=== PATIENT | female | born 1930 | race Caucasian/White ===

== ENCOUNTER 2018-04-01 14:11 | Inpatient (IN) | payer OTHER ==
[~2018-04-01] VITALS: Ht 152.4 cm; Wt 77.1 kg
--- NOTE | 2018-04-01 14:18 | ED AMS/SEIZURE/WEAK/DIZZY ---
History of Present Illness General Chief Complaint: Altered Mental Status Stated Complaint: AMS Source: patient, old records, EMS Exam Limitations: not alert/orientated, clinical condition Vital Signs & Intake/Output Vital Signs & Intake/Output Vital Signs Date Time Temp Pulse Resp B/P B/P Pulse O2 O2 Flow FiO2 Mean Ox Delivery Rate 04/01 1852 98.3 102 18 130/66 94 Room Air 04/01 1810 97.6 102 18 161/72 98 Room Air 04/01 1651 97.6 107 20 178/80 93 Room Air 04/01 1509 97 Nasal 2.0L Cannula 04/01 1420 96.9 107 18 191/87 97 Allergies Coded Allergies: codeine (GI DISTRESS 04/01/18) nystatin (UNKNOWN 04/01/18) Triage Nurses Notes Reviewed? yes Onset: Abrupt Duration: day(s): (1), constant Timing: recent history Injury Environment: home Severity: moderate Severity Numbers: 7 No Modifying Factors: none Associated Symptoms: denies HPI: 87-year-old female with no known medical history presents with EMS after she was found unresponsive by her son on the ground just prior to arrival on EMS arrival patient was awake. Unknown period of time that she was on the ground on arrival she presents in a c-collar with no complaints the patient is only alert and oriented to person. She denies headache neck back or arm chest or abdominal pain. On arrival patient is vomiting. 04/01/2018 5:46:28 PM the house staff was able to get in touch with the patient's son according to the son he found the patient after she had fallen yesterday. He helped her back and side and again found her after she had fallen in the kitchen today. According to the house staff the patient's son states that she is more confused than normal. (Tonny Paniagua) Past History Medical History Any Pertinent Medical History? see below for history Cardiovascular: hyperlipidemia Surgical History Surgical History: non-contributory Psychosocial History What is your primary language Congolese Family History Hx Contributory? No (Tonny Paniagua) Review of Systems Review of Systems Constitutional: Reports: see HPI. Comments ROS: UNOBTAINABLE AT THIS TIME SECONDARY TO CONDITION (Tonny Paniagua) Physical Exam Physical Exam General Appearance: well developed/nourished, awake Comments: Unkempt female in no acute distress HEENT: Normal EENT exam; PERRL, EOMI, no nystagmus. HEAD is atraumatic. moist mucous membranes. Neck: C-collar in place no midline or paracervical tenderness Back: Nontender, no CVA tenderness. Full range of motion Cardiovascular: Regular rate and rhythms no murmurs rubs or gallops, normal JVP Respiratory: Chest nontender.There were no bony deformities, no asymmetry. No respiratory distress. Patient speaking in full complete sentences. Breath sounds clear to auscultation bilaterally: NO W/R/R Abdomen: Soft, nontender nondistended, no appreciable organomegaly. Normal bowel sounds. No rebound/guarding, Extremity: No edema, full range of motion of extremities, normal and equal pulses bilaterally, 5 out of 5 strength noted to bilateral upper and lower extremities Neuro: Alert oriented x1-person, motor sensory normal, cranial nerves II through XII grossly intact. There were no obvious focal neurologic abnormalities. Skin: No appreciable rash on exposed skin, skin is warm and dry. Psych: Mood and affect is normal, memory and judgment is normal. Core Measures ACS in differential dx? Yes CVA/TIA Diagnosis No Sepsis Present: No Sepsis Focused Exam Completed? No (Thien KOCH,Tonny) Progress Differential Diagnosis: arrythmia, anemia, CVA/stroke, drug intoxication, encephalitis, electrolyte imbalance, GI bleed, intracranial mass/tumor, pneumonia, presyncope, UTI/pyelo, vertebrobasilar insuff, RHABDO Plan of Care: Orders Procedure Date/time Status Heart Healthy Diet 04/02 B Active CBC WITHOUT DIFFERENTIAL 04/02 06 Active BASIC ELECTROLYTES PLUS BUN&CR 04/02 0600 Active TROPONIN LEVEL 04/02 0300 Active EKG 04/02 0300 Active Regular Diet 04/01 D Complete TROPONIN LEVEL 04/01 2100 Active EKG 04/01 2100 Active D-DIMER 04/01 1901 Active PT Evaluate & Treat 04/01 184 Active Pathway - chart 04/01 184 Active House Staff 04/01 1846 Active Patient Data 04/01 1846 Active CASE MANAGEMENT CONSULT 04/01 1846 Active Code Status 04/01 1846 Active Intake & Output 04/01 1811 Active LACTIC ACID 04/01 1723 Complete Patient Data 04/01 1651 Active OXYGEN SETUP (GEN) 04/01 1552 Active Saline Lock 04/01 1552 Active Admit to inpatient 04/01 1552 Active Vital Signs 04/01 1552 Active Activity/Ambulation 04/01 1552 Active Code Status 04/01 1552 Complete BLOOD CULTURE 04/01 1542 Active VIT D 25 HYDROXY 04/01 1500 Active THYROID STIMULATING HORMONE 04/01 1500 Active PHOSPHORUS 04/01 1500 Active MAGNESIUM 04/01 1500 Active Hamm, Insertion/Removal/Asses 04/01 1452 Active Telemetry/Brewing Technician 04/01 1423 Active CULTURE,URINE 04/01 1423 Active URINALYSIS 04/01 1423 Complete TROPONIN LEVEL 04/01 1423 Active LACTIC ACID 04/01 1423 Active COMPREHENSIVE METABOLIC PANEL 04/01 1423 Active CREATINE PHOSPHOKINASE 04/01 1423 Active CBC WITHOUT DIFFERENTIAL 04/01 142 Complete EKG 04/01 142 Active Lab Add-on Test 04/01 UNK Active VTE Mechanical Prophylaxis 04/01 UNK Active Vital Signs 04/01 UNK Active MISTAKE 04/01 UNK Active Telemetry/Brewing Technician 04/01 UNK Active Current Medications Sig/Dada Start time Last Medication Dose Stop Time Status Admin Polyethylene Glycol 17 GM DAILY 04/01 1847 AC (Miralax) Enoxaparin Sodium 40 MG DAILY 04/01 184 AC (Lovenox) Acetaminophen 650 MG Q6P PRN 04/01 183 AC (Tylenol) Sodium Chloride 1,000 ML .Q20H 04/01 183 AC (Normal Saline 0.9%) Laboratory Tests 04/01/18 1758: Lactic Acid 1.3 04/01/18 1510: Urinalysis MOD H, Urine Color YEL, Urine Clarity HAZY H, Urine pH 6.0, Ur Specific [place] >= 1.030, Urine Protein 100 H, Urine Ketones 15 H, Urine Nitrite NEG, Urine Bilirubin NEG, Urine Urobilinogen 0.2, Ur Leukocyte Esterase NEG, Ur Microscopic SEDIMENT EXAMINED, Urine RBC 1-3, Ur Epithelial Cells RARE, Hyaline Casts 1-3 H, Granular Casts 5-10 H, Urine Mucus MANY H, Urine Hemoglobin MOD H, Urine Glucose NEG 04/01/18 1500: Anion Gap 15, Estimated GFR 60, BUN/Creatinine Ratio 34.4 H, Glucose 173 H, Lactic Acid 2.1, Calcium 9.7, Phosphorus 3.9, Magnesium 2.2, Total Bilirubin 0.9 , AST 54 H, ALT 44, Alkaline Phosphatase 99, Creatine Kinase 873 H, Troponin I 0.06, Total Protein 8.0, Albumin 4.2, Globulin 3.8, Albumin/Globulin Ratio 1.1, 25-OH Vitamin D Total 17.0 L, TSH Pending, CBC w Diff NO MAN DIFF REQ, RBC 5.02 , MCV 83.5, MCH 28.3, MCHC 33.9, RDW 15.9 H, MPV 9.5, Gran % 91.2 H, Lymphocytes % 3.3 L, Monocytes % 4.3, Eosinophils % 0.1, Basophils % 1.1, Absolute Granulocytes 13.6 H, Absolute Lymphocytes 0.5 L, Absolute Monocytes 0.6, Absolute Eosinophils 0, Absolute Basophils 0.2 Microbiology 04/01 1545 BLOOD: Blood Culture - RECD 04/01 1542 BLOOD: Blood Culture - ORD 04/01 1510 URINE ROUT: Urine Culture - RECD I attempted multiple calls to the patient's son MARY including the work phone number which was the number to the [employer] after speaking with an officer there he informed me that the gentleman retired several years ago and is no longer employed with them I attempted leaving a voice mail however the patient's home phone number and the son's listed phone number continue to ring and I was unable to provide a voicemail to call back Case discussed with Dr. ALLEN- even elevated lactic acid, leukocytosis we will treat with antibiotics broad-spectrum IV fluids are running Case discussed with Dr. WOODALL WILL ADMIT Diagnostic Imaging: Viewed by Me: CT Scan. Discussed w/RAD: CT Scan. Radiology Impression: PATIENT: ARABELLA LYLES PRESENT AGE: 87 PATIENT ACCOUNT NO: [id number] : 32 LOCATION: [facility] ORDERING PHYSICIAN: Tonny KOCH SERVICE DATE: 04/01/18 EXAM TYPE: CAT - CT ABD & PELVIS W/O IV CONTRAS; CT CHEST WO IV CONTRAST EXAMINATION: CT chest, abdomen, and pelvis WITHOUT CONTRAST CLINICAL INFORMATION: Fall. COMPARISON: None TECHNIQUE: Multidetector volumetric imaging was performed from the superior aspect of the liver through the pubic symphysis. Sagittal and coronal reformatted images were obtained on the technologist's workstation. DLP: 682 mGy-cm FINDINGS: Chest: The heart is within normal limits in terms of size. No pericardial effusion. There are coronary and aortic valvular calcifications. The thoracic aorta appears normal in caliber with moderate calcification. No evidence of mediastinal adenopathy. No axillary or internal mammary adenopathy. There is mild scattered cylindrical bronchiectasis without luminal obstruction. Trace pleural effusions are suspected with adjacent lower lobe compressive atelectasis. Biapical pleuroparenchymal scarring. The liver is diffusely low in attenuation suggesting steatosis without discrete hepatic lesion. The gallbladder is normal in caliber. No biliary ductal dilatation, gallbladder wall thickening or pericholecystic fluid. The adrenal glands and spleen are unremarkable. There is some fatty atrophy of the pancreas with punctate calcifications along the pancreatic parenchyma some of which may be vascular in some of which may be the sequela of prior pancreatitis. No inflammatory change surrounding the pancreas is currently visualized. There is mild bilateral perinephric stranding without evidence of hydronephrosis or nephrolithiasis, accounting for vascular calcifications in the left hilum. There is a oval 4.9 cm simple fluid attenuating cyst arising exophytically from the interpolar region of the left kidney. A Hamm catheter decompresses the bladder lumen. The aorta is moderately calcified with infrarenal ectasia measuring up to 2.5 cm in diameter. No adenopathy is evident. No free air or free fluid in the abdomen. There is a large amount of stool within the distended rectum and distal sigmoid colon. There are scattered colonic diverticuli without evidence of diverticulitis. An appendix is not definitively visualized. There is no focal inflammatory change in the right lower quadrant. Loops of small bowel appear normal in caliber. No significant hernia is appreciated. There is a cystic structure in the left adnexa measuring up to 3 cm. This can be correlated with pelvic ultrasound. No compression deformities within the spine. There is multilevel degenerative change. There is bilateral L5 spondylolysis with 5 mm of anterolisthesis of L5 on S1. No acute osseous abnormality. IMPRESSION: 1. Trace pleural effusions with associated compressive atelectasis. Scattered mild cylindrical bronchiectasis in both lungs without bronchial luminal obstruction. 2. Low attenuation liver compatible with hepatic steatosis. 3. Large amount of stool within the distended rectum and distal sigmoid colon suggestive of impaction. Scattered colonic diverticula without diverticulitis. 4. A 3 cm cystic structure in the left adnexa, which would be better assessed with pelvic ultrasound. 5. 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 Multilevel thoracolumbar degenerative change. No compression deformities. DICTATED BY: Nav Caruso MD DATE/TIME DICTATED:04/01/181529 INTERNATIONAL STUDENT COUNSELOR:FLASH DATE/TIME TRANSCRIBED:04/01/181529 CONFIDENTIAL, DO NOT COPY WITHOUT APPROPRIATE AUTHORIZATION. <Electronically signed in Other Vendor System> SIGNED BY: Nav Caruso MD 04/01/18 1548, ATIENT: ARABELLA LYLES PRESENT AGE: 87 PATIENT ACCOUNT NO: [id number] : 32 LOCATION: [facility] ORDERING PHYSICIAN: Tonny KOCH SERVICE DATE : 04/01/18 EXAM TYPE: CAT - CT CERV SPINE WO IV CONTRAST; CT HEAD WO IV CONTRAST EXAMINATION: CT HEAD AND CERVICAL SPINE. CLINICAL INFORMATION: Altered mental status after fall. COMPARISON: No relevant prior imaging. TECHNIQUE: Bearingizer images were obtained. CT acquisition of the head and cervical spine was performed without intravenous administration of contrast. Data was reformatted into multiplanar images at the acquisition workstation. DLP: 968 mGy-cm. FINDINGS: Head: There are numerous foci of hypoattenuation throughout the periventricular white matter that most likely represent a chronic manifestation of small vessel ischemia. Grossly no evidence of acute territorial infarct. There is no acute hemorrhage or abnormal extra-axial collection. No intracranial mass effect or midline shift. Lateral and third ventricles are proportionate to the subarachnoid spaces. Mild global parenchymal volume loss. No hydrocephalus. There is focal swelling of the right occipital scalp. The calvarium and skull base are intact. Mastoid air cells and middle ear cavities are well aerated. Visualized paranasal sinuses are well-aerated. Cervical spine: Alignment is normal. Vertebral body heights are preserved. There are no acute fracture. No abnormal prevertebral soft tissue swelling. There is loss of intervertebral disc height with associated sclerotic degenerative endplate changes and disc osteophyte spurring at multiple levels. Grossly no evidence of canal compromise. There is uncovertebral joint spurring and facet degenerative change at multiple levels. Soft tissues of the neck are unremarkable. There is pleural-parenchymal scarring at the apices of both lungs. IMPRESSION: Head: There is focal swelling of the right occipital scalp. No evidence of acute intracranial hemorrhage. Cervical spine: Advanced multilevel degenerative spondylosis of the cervical spine. No evidence of acute fracture and no traumatic spinal subluxation. DICTATED BY: Barron Moreno MD DATE/TIME DICTATED:04/01/181513 INTERNATIONAL STUDENT COUNSELOR:FLASH DATE/TIME TRANSCRIBED:04/01/181513 CONFIDENTIAL, DO NOT COPY WITHOUT APPROPRIATE AUTHORIZATION. <Electronically signed in Other Vendor System> SIGNED BY: Barron Moreno MD 04/01/18 1524 Initial ED EKG: stach at 100, nonspecific st seg chagnes, normal axis Rhythm Strip: sinus tachycardia (Tonny Paniagua) Departure Departure Time of Disposition: 1642 Disposition: STILL A PATIENT Condition: Stable Clinical Impression Primary Impression: Syncope Secondary Impressions: Fall, Lactic acidosis, Leukocytosis Referrals: Maria Teresa Flannery MD,Feroz Weeks (PCP/Family) Departure Forms: Customer Survey General Discharge Information Admission Note Spoke With: Anca Hernández MD Documentation of Exam: Documentation of any treatments & extenuating circumstances including Concerns Regarding Discharge (functional status, medication knowledge or non-compliance, living conditions, etc.) that warrant an admission rather than observation: trend labs, trend cultures, iv abx, pt consult, cardio consult, tele monitoring. premature dischare would be meidcally harmful (Tonny Paniagua) Admission Note Documentation of Exam: Documentation of any treatments & extenuating circumstances including Concerns Regarding Discharge (functional status, medication knowledge or non-compliance, living conditions, etc.) that warrant an admission rather than observation: PA/SYNTHETIC GEM PRESS OPERATOR Co-Sign Statement Statement: ED Attending supervision documentation- x I saw and evaluated the patient. I have also reviewed all the pertinent lab results and diagnostic results. I agree with the findings and the plan of care as documented in the PA's/SYNTHETIC GEM PRESS OPERATOR's documentation. Dementia, syncope with elevated cpk [] I have reviewed the ED Record and agree with the PA's/SYNTHETIC GEM PRESS OPERATOR's documentation. [] Additions or exceptions (if any) to the PAs/SYNTHETIC GEM PRESS OPERATOR's note and plan are summarized below: [] (Randee MARROQUIN,Russ)
[2018-04-01 15:10] LABS: ABSOLUTE BASOPHIL COUNT 0.2 /CUMM (0.0-0.2); ABSOLUTE EOSINOPHIL COUNT 0 /CUMM (0.0-0.7); ABSOLUTE GRANULOCYTE CT 13.6 /CUMM (1.4-6.5); ABSOLUTE LYMPH COUNT 0.5 /CUMM (1.2-3.4); ABSOLUTE MONOCYTE COUNT 0.6 /CUMM (0.10-0.60); BASOPHIL % 1.1 % (0.0-2.0); EOSINOPHIL % 0.1 % (0-5); GRANULOCYTE % 91.2 % (42.2-75.2); HEMATOCRIT 41.9 % (37-47); MEAN CORPUSCULAR HGB 28.3 PG (27.0-31.0); MEAN CORPUSCULAR HGB CONC 33.9 G/DL (33.0-37.0); MEAN CORPUSCULAR VOLUME 83.5 FL (81.0-99.0); MEAN PLATELET VOLUME 9.5 FL (7.4-10.4); PLATELET COUNT 279 /CUMM (130-400); RBC DISTRIBUTION WIDTH 15.9 % (11.5-14.5); RED BLOOD CELL CT 5.02 /CUMM (4.20-5.40)
--- NOTE | 2018-04-01 15:24 | CT SCAN REPORT ---
EXAMINATION: CT HEAD AND CERVICAL SPINE. CLINICAL INFORMATION: Altered mental status after fall. COMPARISON: No relevant prior imaging. TECHNIQUE: Diamond Cleaver images were obtained. CT acquisition of the head and cervical spine was performed without intravenous administration of contrast. Data was reformatted into multiplanar images at the acquisition workstation. DLP: 968 mGy-cm. FINDINGS: Head: There are numerous foci of hypoattenuation throughout the periventricular white matter that most likely represent a chronic manifestation of small vessel ischemia. Grossly no evidence of acute territorial infarct. There is no acute hemorrhage or abnormal extra-axial collection. No intracranial mass effect or midline shift. Lateral and third ventricles are proportionate to the subarachnoid spaces. Mild global parenchymal volume loss. No hydrocephalus. There is focal swelling of the right occipital scalp. The calvarium and skull base are intact. Mastoid air cells and middle ear cavities are well aerated. Visualized paranasal sinuses are well-aerated. Cervical spine: Alignment is normal. Vertebral body heights are preserved. There are no acute fracture. No abnormal prevertebral soft tissue swelling. There is loss of intervertebral disc height with associated sclerotic degenerative endplate changes and disc osteophyte spurring at multiple levels. Grossly no evidence of canal compromise. There is uncovertebral joint spurring and facet degenerative change at multiple levels. Soft tissues of the neck are unremarkable. There is pleural-parenchymal scarring at the apices of both lungs. IMPRESSION: Head: There is focal swelling of the right occipital scalp. No evidence of acute intracranial hemorrhage. Cervical spine: Advanced multilevel degenerative spondylosis of the cervical spine. No evidence of acute fracture and no traumatic spinal subluxation.
[2018-04-01 15:26] LABS: WHITE BLOOD CELL COUNT 14.9 /CUMM (4.8-10.8)
--- NOTE | 2018-04-01 15:48 | CT SCAN REPORT ---
EXAMINATION: CT chest, abdomen, and pelvis WITHOUT CONTRAST CLINICAL INFORMATION: Fall. COMPARISON: None TECHNIQUE: Multidetector volumetric imaging was performed from the superior aspect of the liver through the pubic symphysis. Sagittal and coronal reformatted images were obtained on the technologist's workstation. DLP: 682 mGy-cm FINDINGS: Chest: The heart is within normal limits in terms of size. No pericardial effusion. There are coronary and aortic valvular calcifications. The thoracic aorta appears normal in caliber with moderate calcification. No evidence of mediastinal adenopathy. No axillary or internal mammary adenopathy. There is mild scattered cylindrical bronchiectasis without luminal obstruction. Trace pleural effusions are suspected with adjacent lower lobe compressive atelectasis. Biapical pleuroparenchymal scarring. The liver is diffusely low in attenuation suggesting steatosis without discrete hepatic lesion. The gallbladder is normal in caliber. No biliary ductal dilatation, gallbladder wall thickening or pericholecystic fluid. The adrenal glands and spleen are unremarkable. There is some fatty atrophy of the pancreas with punctate calcifications along the pancreatic parenchyma some of which may be vascular in some of which may be the sequela of prior pancreatitis. No inflammatory change surrounding the pancreas is currently visualized. There is mild bilateral perinephric stranding without evidence of hydronephrosis or nephrolithiasis, accounting for vascular calcifications in the left hilum. There is a oval 4.9 cm simple fluid attenuating cyst arising exophytically from the interpolar region of the left kidney. A Hamm catheter decompresses the bladder lumen. The aorta is moderately calcified with infrarenal ectasia measuring up to 2.5 cm in diameter. No adenopathy is evident. No free air or free fluid in the abdomen. There is a large amount of stool within the distended rectum and distal sigmoid colon. There are scattered colonic diverticuli without evidence of diverticulitis. An appendix is not definitively visualized. There is no focal inflammatory change in the right lower quadrant. Loops of small bowel appear normal in caliber. No significant hernia is appreciated. There is a cystic structure in the left adnexa measuring up to 3 cm. This can be correlated with pelvic ultrasound. No compression deformities within the spine. There is multilevel degenerative change. There is bilateral L5 spondylolysis with 5 mm of anterolisthesis of L5 on S1. No acute osseous abnormality. IMPRESSION: 1. Trace pleural effusions with associated compressive atelectasis. Scattered mild cylindrical bronchiectasis in both lungs without bronchial luminal obstruction. 2. Low attenuation liver compatible with hepatic steatosis. 3. Large amount of stool within the distended rectum and distal sigmoid colon suggestive of impaction. Scattered colonic diverticula without diverticulitis. 4. A 3 cm cystic structure in the left adnexa, which would be better assessed with pelvic ultrasound. 5. 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 Multilevel thoracolumbar degenerative change. No compression deformities.
--- NOTE | 2018-04-01 17:47 | History & Physical ---
Suad MARROQUIN,Esther 04/01/18 1984: General Information and [facility] MD Statement: I have seen and personally examined ARABELLA LYLES and documented this H&P. The patient is a 87 year old F who presented with a patient stated chief complaint of syncope and confusion Source of Information: patient, family Exam Limitations: not alert/orientated History of Present Illness: This is an 87-year-old female with a past medical history significant only for hyperlipidemia that is brought to see us for recent history of falls and altered mental status. There is some inconsistency in his story as the patient is a poor historian. Some history was taken from her son by telephone. Apparently the patient fell yesterday when she was outside in her garden over some rocks. At the time she was ambulating with her cane and neighbors called her son who rushed over and helped her into her house. She suffered no trauma at that time. Again, the patient fell this morning, this time reported in her kitchen. She was found by her son and told him that she "laid on the floor". The patient denied any head strike, injury, pain, loss of consciousness although there was report that the son found her unresponsive. The patient lives alone in a house in [place]. The patient has no visiting nurse. According to the son, the patient was cognitively much better until very recently when she became confused and began to confabulate. She denies any recent or current chest pain, palpitations, shortness of breath, nausea, vomiting, abdominal pain, diarrhea, constipation, dysuria, hematuria, recent falls, headache, dizziness, focal or general weakness. The patient admits to "bad hemorrhoids all my life". She also admits to an ankle fracture a while back but does not remember how it happened. She denies any other surgeries. She denies any recent illness. The last time she saw her PCP was last summer. It is to be noted that the patient denies any issues taking care of herself but was noted to be unkempt and dehydrated. The patient states that her diet recently has been good and that she has been "eating too much". She smoked for 2-3 years when she was in high school. She denies any drug use or alcohol use. 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 The patient has 3 grown children who live close by her. The patient's son states that she stopped driving years ago. The last time the patient was here was in 2013 for a fall. Her son Roberto is an ex-police communications dispatcher, phone number is [phone]. Allergies/Medications Allergies: Coded Allergies: codeine (GI DISTRESS 04/01/18) nystatin (UNKNOWN 04/01/18) Compliance With Home Meds: UNKNOWN Past History Medical History Cardiovascular: hyperlipidemia Surgical History Surgical History: non-contributory Past Family/Social History Family History Relations & Conditions if any Family history was reviewed; no changes noted. Functional Ability ADLs Independent: dressing, eating, toileting, bathing. Ambulation: cane Review of Systems Review of Systems Constitutional: Reports: no symptoms. EENTM: Reports: no symptoms. Cardiovascular: Reports: no symptoms. Respiratory: Reports: no symptoms. GI: Reports: no symptoms. Genitourinary: Reports: no symptoms. Musculoskeletal: Reports: no symptoms. Skin: Reports: no symptoms. Neurological/Psychological: Reports: confusion. Hematologic/Endocrine: Reports: no symptoms. Immunologic/Allergic: Reports: no symptoms. Exam & Diagnostic Data Last 24 Hrs of Vital Signs/I&O Vital Signs Date Time Temp Pulse Resp B/P B/P Pulse O2 O2 Flow FiO2 Mean Ox Delivery Rate 04/01 1852 98.3 102 18 130/66 94 Room Air 04/01 1810 97.6 102 18 161/72 98 Room Air 04/01 1651 97.6 107 20 178/80 93 Room Air 04/01 1509 97 Nasal 2.0L Cannula 04/01 1420 96.9 107 18 191/87 97 Intake & Output 04/01 1600 04/01 0800 04/01 0000 Intake Total Output Total Balance Patient 145 lb Weight Weight Reported by Patient Measurement Method Physical Exam General Appearance Alert, Cooperative, No Acute Distress Skin No Rashes, No Breakdown, patient has dry and thick skin of her arms and legs and dry mucous membranes. Skin Temp/Moisture Exam: Warm/Dry Sepsis Skin Exam (color): Normal for Ethnicity HEENT Atraumatic, EOMI, Mucous Membr. moist/pink, pupils small but reactive Neck Supple, No JVD Cardiovascular Normal S1, Normal S2, tachycardic with murmur 4/6 systolic loudest in mitral area Lungs Clear to Auscultation Abdomen Normal Bowel Sounds, Soft, No Tenderness Neurological Normal Speech, Strength at 5/5 X4 Ext, Normal Tone, Sensation Intact, Cranial Nerves 3-12 NL, Reflexes 2+ Extremities No Clubbing, No Cyanosis, No Edema, Normal Pulses, No Tenderness/ Swelling, thick skin of the arms and legs, slightly hyperpigmented Vascular Normal Pulses, Pulses Symmetrical Sepsis Peripheral Pulse Location: Radial Last 24 Hrs of Labs/Ata: Laboratory Tests 04/01/18 1758: Lactic Acid 1.3 04/01/18 1510: Urinalysis MOD H, Urine Color YEL, Urine Clarity HAZY H, Urine pH 6.0, Ur Specific Oolitic >= 1.030, Urine Protein 100 H, Urine Ketones 15 H, Urine Nitrite NEG, Urine Bilirubin NEG, Urine Urobilinogen 0.2, Ur Leukocyte Esterase NEG, Ur Microscopic SEDIMENT EXAMINED, Urine RBC 1-3, Ur Epithelial Cells RARE, Hyaline Casts 1-3 H, Granular Casts 5-10 H, Urine Mucus MANY H, Urine Hemoglobin MOD H, Urine Glucose NEG 04/01/18 1500: Anion Gap 15, Estimated GFR 60, BUN/Creatinine Ratio 34.4 H, Glucose 173 H, Lactic Acid 2.1, Calcium 9.7, Phosphorus 3.9, Magnesium 2.2, Total Bilirubin 0.9 , AST 54 H, ALT 44, Alkaline Phosphatase 99, Creatine Kinase 873 H, Troponin I 0.06, Total Protein 8.0, Albumin 4.2, Globulin 3.8, Albumin/Globulin Ratio 1.1, 25-OH Vitamin D Total 17.0 L, TSH Pending, CBC w Diff NO MAN DIFF REQ, RBC 5.02 , MCV 83.5, MCH 28.3, MCHC 33.9, RDW 15.9 H, MPV 9.5, Gran % 91.2 H, Lymphocytes % 3.3 L, Monocytes % 4.3, Eosinophils % 0.1, Basophils % 1.1, Absolute Granulocytes 13.6 H, Absolute Lymphocytes 0.5 L, Absolute Monocytes 0.6, Absolute Eosinophils 0, Absolute Basophils 0.2 Microbiology 04/01 1545 BLOOD: Blood Culture - RECD 04/01 154 BLOOD: Blood Culture - ORD 04/01 151 URINE ROUT: Urine Culture - RECD Assessment/Plan Assessment: This is an 87-year-old female with a past medical history significant only for hyperlipidemia that is brought to see us for recent history of falls and altered mental status. As per the patient's son she had been normal before this and had no complaints. He denies recent confusion. The patient lives alone and usually ambulates with a cane. The patient's son denies a recent history of falls, but the patient was seen here in 2013 for a fall. The patient denied any palpitations, recent illness, bleeds, cough, chest pain, shortness of breath. Patient was noted to be unkempt and dehydrated. As per ER notes the patient presented with a c-collar, was alert and oriented 1 and began to vomit after she returned from CT scan. The patient was given Zofran along with 3 boluses of normal saline. Patient had a normal neurological exam, did have a systolic murmur, clear lungs, no other pertinent findings. Vital signs show temperature 96.9, heart rate 107, respiratory rate 18, blood pressure 191/87 which decreased to 161/72 and heart rate 102 on next reading, 93% oxygen saturation on room air. Labs showed WBC of 14.9 with left shift and no bands, PEEP significant for creatinine of 0.9, BUN of 31, CK of 873, urinalysis showing no evidence of infection but ketones and granular casts, evidence for dehydration. Lactic acid 2.1 with follow-up lactic acid 1.3. Troponin 0.06. EKG was done and showed a regular rate sinus tachycardia of 106, no ST or T-wave changes. QTC of 479. CT of the head showed focal swelling on the right occipital scalp with no acute intracranial hemorrhage. C-spine CT showed multilevel degenerative spondylosis of the cervical spine with no evidence of acute fracture. CT chest showed trace pleural effusions with associative compressive atelectasis and scattered mild cylindrical bronchiectasis bilaterally, hepatic steatosis, a large amount of stool in the colon, a 3 cm cyst in the adnexa. The patient has a well score 0. Problem list Recent falls Dehydration Leukocytosis with mild lactic acidosis: Patient is afebrile but with an elevated white blood cell count with granulocytosis. She does meet SIRS criteria as she has elevated white blood cell count and tachycardia. Of any source of infection we would assume it may be a lung secondary to potential aspiration pneumonia as the patient did vomit and her history is uncertain and may include recent vomiting. Tachycardia and hypertension Plan -Admit patient to telemetry for further evaluation and treatment -Fall precautions -Patient was given ceftriaxone and azithromycin in the ED. We will reassess her CBCs tomorrow and decide on further antibiotic dosing. -D-dimer -Echocardiogram -Trend troponins and EKGs 3 -Blood cultures and urine cultures -Normal saline at a rate of 75 cc/h -Follow BEP/CBC and CK level -Vitamin D and thyroid levels -Physical therapy evaluation -Case management -Bowel regimen Patient is DNI Regular diet DVT prophylaxis with Lovenox and Alps As Ranked By This Provider Problem List: 1. Lactic acidosis 2. Leukocytosis 3. Syncope 4. Fall Core Measures/Misc (08/18) Acute Coronary Syndrome ACS Diagnosis: No Congestive Heart Failure Congestive Heart Failure Diagnosis No Cerebrovascular Accident CVA/TIA Diagnosis: No VTE (View Protocol) VTE Risk Factors Age>40 No Mechanical VTE Prophylaxis d/t N/A MechProphylax Ordered No VTE Pharm Prophylaxis d/t NA PharmProphylax ordered Sepsis (View protocol) Sepsis Present: No [facility] 1850: Resident Review Statement Resident Statement: examined this patient, discussed with senior internal auditor, agreed with senior internal auditor, discussed with family, discussed with nursing Other Findings: Patient is 87-year-old female with past medical history significant for hyperlipidemia. Brought in by ambulance after was found laying on the kitchen floor by her son. Patient is alert and oriented 1. She was able to give us some history however reached out to her son for clear history. He reported history of fall yesterday in the backyard, he helped her to inside the house. This morning when he visited her found her laying on the kitchen floor, alert and oriented. Upon questioning her she said "I am just laying on the floor". Patient denied any chest pain, palpitation, shortness of breath, nausea or vomiting, abdominal pain. She said "I do not remember I blacked out". Patient lives and her house by herself, independent, uses cane to ambulate around. No history of frequent falls per her son. She sees her primary care physician or regular basis last time was last summer. Takes only statin on a regular basis. Son denied any previous history of heart disease including NH, any lung disease. According to ED note patient had one episode of vomiting after CAT scan. Vital signs on admission temperature 96.9, pulse 107 regular, blood pressure 191 /87, respiratory rate 18 saturating 97% on room air. Physical exam patient alert, oriented 1, HEENT exam unremarkable, PERRLA, EOMI. Head is atraumatic. dry mucous membrane. Neck supple, full range of motion. Cardiovascular regular S1-S2, systolic murmur 4/6 maximum intensity at mid clavicular line fifth intercostal space. Chest is nontender, normal air movement. Abdomen soft, bowel sounds positive. Lower extremity no edema, full range of motion, peripheral pulses faint palpable. Neuro exam alert oriented 1 to person, motor and sensory intact 4, cranial nerves grossly intact. Problem list -Dehydration status post fall -Positive ketones mostly due to dehydration -Mild leukocytosis with left shift and no bandemia. Low suspicion for infection. Mostly due to dehydration -Elevated creatinine kinase -Tachycardia will well's score low for PE or DVT -Hypertension Plan -Admit to telemetry floor -Vitals every shift -Orthostatic measurement -Echocardiogram -Tropes and EKG 2. Initial set is negative. -We will obtain d-dimer -Patient status 3 L IV fluid. We will continue maintenance normal saline running at 50 cc/h -Follow-up lactic acid -Follow-up creatinine kinase in a.m. -Obtain magnesium, phosphorus, TSH, vitamin D -Aggressive bowel regimen -Case management evaluation -PT evaluation Anca Hernández MD 04/01/181952: Attending MD Review Statement Attending Statement Attending MD Statement: examined this patient, discuss w/resident/PA/CHILDREN'S AUTHOR, agreed w/resident/PA/CHILDREN'S AUTHOR, reviewed EMR data (avail) Attending Assessment/Plan: 87F with recurrent falls, fell yesterday and again this morning, found by son and was down for unknown period of time, no loss of consciousness or head strike reported but patient is poor historian. Asymptomatic at this time, no complaints, physical and neuro exam normal. Labs significant for WBC 25, CPK 800. She appears dehydrated. EKG NSR Plan - Observation in telemetry - Serial EKG and troponin - IV hydration - Check d-dimer - Continue home meds - PT eval - DVT PPx
[2018-04-01 18:52] VITALS: BP 130/66
[2018-04-02 00:18] VITALS: BP 126/62
[2018-04-02 04:51] LABS: ABSOLUTE BASOPHIL COUNT 0 /CUMM (0.0-0.2); ABSOLUTE EOSINOPHIL COUNT 0.1 /CUMM (0.0-0.7); ABSOLUTE GRANULOCYTE CT 8.6 /CUMM (1.4-6.5); ABSOLUTE LYMPH COUNT 1.3 /CUMM (1.2-3.4); ABSOLUTE MONOCYTE COUNT 0.8 /CUMM (0.10-0.60); BASOPHIL % 0.2 % (0.0-2.0); EOSINOPHIL % 0.9 % (0-5); GRANULOCYTE % 79.5 % (42.2-75.2); MEAN CORPUSCULAR HGB 27.7 PG (27.0-31.0); MEAN CORPUSCULAR HGB CONC 32.8 G/DL (33.0-37.0); MEAN CORPUSCULAR VOLUME 84.5 FL (81.0-99.0); MEAN PLATELET VOLUME 9.3 FL (7.4-10.4); PLATELET COUNT 213 /CUMM (130-400); RBC DISTRIBUTION WIDTH 16.2 % (11.5-14.5); WHITE BLOOD CELL COUNT 10.8 /CUMM (4.8-10.8)
[2018-04-02 04:56] LABS: HEMATOCRIT 33.8 % (37-47)
--- NOTE | 2018-04-02 06:14 | Event Note ---
Event Note Event Note: Patient's D-dimer elevated to 2002. Patient's troponin trending up, EKG without any signficant changes. Patient was seen and examined. She was resting comfortably. Denies any chest pain, palpitations, nausea, epigastric pain, shortness of breath. VSS. - patient was given Aspirin 325mg - attempted to obtain consent from patient's sonBaljeet - CTA ordered AM team to try to obtain consent from patient's son
[2018-04-02 06:38] VITALS: BP 136/66
--- NOTE | 2018-04-02 08:04 | PN- Housestaff ---
Suad MARROQUIN,Esther 04/02/18 0804: Subjective Follow-up For: Recent falls Dehydration Leukocytosis with mild lactic acidosis Tachycardia and hypertension Complaints: no complaints Tele-Events Since Last Visit: Normal sinus rhythm rate 85-90 Subjective: Patient seen and examined. She denies any pain. She still has the same confusion as yesterday, confabulation. no shortness of breath, no cough, no dysuria. no dizziness. Review of Systems Constitutional: Reports: no symptoms. EENTM: Reports: no symptoms. Cardiovascular: Reports: no symptoms. Respiratory: Reports: no symptoms. Gastrointestinal: Reports: no symptoms. Genitourinary: Reports: no symptoms. Musculoskeletal: Reports: no symptoms. Skin: Reports: no symptoms. Neurological/Psychological: Reports: no symptoms. Hematologic/Endocrine: Reports: no symptoms. Objective Last 24 Hrs of Vital Signs/I&O Vital Signs Date Time Temp Pulse Resp B/P B/P Pulse O2 O2 Flow FiO2 Mean Ox Delivery Rate 04/02 1500 97.6 70 20 108/66 92 04/02 1500 98.3 83 20 120/60 94 04/02 1450 120/60 04/02 0927 96 Nasal 2.0L Cannula 04/02 0638 98.0 92 18 136/66 95 Room Air 04/02 0018 97.8 98 18 126/62 93 Room Air 04/02 0000 Nasal Cannula 04/01 1852 98.3 102 18 130/66 94 Room Air 04/01 1810 97.6 102 18 161/72 98 Room Air 04/01 1800 97 Nasal 2.0L Cannula 04/01 1651 97.6 107 20 178/80 93 Room Air Intake & Output 04/02 1600 04/02 0800 04/02 0000 Intake Total 408 933 7282 Output Total 250 300 300 Balance 816 790 7116 Intake, IV 449 951 3808 Intake, Oral 400 100 Output, Urine 250 300 300 Patient 166 lb Weight Weight Bed scale Measurement Method Physical Exam General Appearance: Alert, Cooperative, No Acute Distress Skin: No Rashes, No Breakdown, No Significant Lesion Skin Temp/Moisture Exam: Warm/Dry Sepsis Skin Exam (color): Normal for Ethnicity HEENT: Atraumatic, PERRLA, EOMI, Mucous Membr. moist/pink Cardiovascular: Regular Rate, Normal S1, Normal S2 Lungs: Clear to Auscultation, Normal Air Movement Abdomen: Normal Bowel Sounds, Soft, No Tenderness, No Hepatospenomegaly Neurological: Normal Speech Extremities: No Clubbing, No Cyanosis, No Edema Vascular: Normal Pulses, Pulses Symmetrical Current Medications: Current Medications Sig/Dada Start time Last Medication Dose Route Stop Time Status Admin Acetaminophen 650 MG Q6P PRN 04/01 1830 AC PO Aspirin 325 MG ONCE ONE 04/02 0545 DC 04/02 PO 04/02 0546 0548 Azithromycin 500 MG ONCE ONE 04/01 1600 DC 04/01 Sodium Chloride 250 ML IV 04/01 1659 1810 Ceftriaxone Sodium 0 .STK-MED ONE 04/01 1740 DC .ROUTE Cholecalciferol 1,000 IU DAILY 04/02 0900 AC 04/02 PO 0831 Enoxaparin Sodium 40 MG DAILY 04/01 1846 AC 04/02 SC 0831 Metoprolol Tartrate 25 MG BID 04/02 1311 AC 04/02 PO 1450 Polyethylene Glycol 17 GM DAILY 04/01 1847 AC 04/02 PO 0831 Sodium Chloride 1,000 ML .Q20H 04/01 1830 DC 04/01 IV 2154 Sodium Chloride 1,000 ML BOLUS ONE 04/01 1545 DC 05 IV 04/01 1644 1545 Sodium Chloride 1,000 ML BOLUS ONE 04/01 1545 DC 04/01 IV 04/01 1644 1644 Last 24 Hrs of Lab/Ata Results Last 24 Hrs of Labs/Mics: Laboratory Tests 04/02/18 1150: Troponin I 0.20 *H 04/02/18 0400: Troponin I 0.22 *H 04/02/18 0400: Anion Gap 9, Estimated GFR > 60, BUN/Creatinine Ratio 30.0 H, Hemoglobin A1c 5.5, Creatine Kinase 501 H, CBC w Diff MAN DIFF ORDERED, RBC 4.00 L, MCV 84.5, MCH 27.7, MCHC 32.8 L, RDW 16.2 H, MPV 9.3, Gran % 79.5 H, Lymphocytes % 12.1 L, Monocytes % 7.3, Eosinophils % 0.9, Basophils % 0.2, Absolute Granulocytes 8.6 H, Segmented Neutrophils 73, Band Neutrophils 2, Absolute Lymphocytes 1.3, Lymphocytes 17 L, Monocytes 7, Absolute Monocytes 0.8 H, Eosinophils 1, Absolute Eosinophils 0.1, Absolute Basophils 0, Platelet Estimate ADEQUATE, Normocytic RBCs VERIFIED, Normochromic RBCs VERIFIED, Fld Total RBCs Counted 100 04/01/180: Troponin I 0.12 *H 04/01/18 193: D-Dimer High Sensitivty 2004 H 04/01/18 1758: Lactic Acid 1.3 Microbiology 04/01 1920 BLOOD: Blood Culture - RES Orders CIWA Score (last 24 hrs): 2 Assessment/Plan Assessment: This is an 87-year-old female with a past medical history significant only for hyperlipidemia that is brought to see us for recent history of falls and altered mental status. As per the patient's son she had been normal before this and had no complaints. He denies recent confusion. The patient lives alone and usually ambulates with a cane. The patient's son denies a recent history of falls, but the patient was seen here in 2012 for a fall. The patient denied any palpitations, recent illness, bleeds, cough, chest pain, shortness of breath. Patient was noted to be unkempt and dehydrated. As per ER notes the patient presented with a c-collar, was alert and oriented 1 and began to vomit after she returned from CT scan. The patient was given Zofran along with 3 boluses of normal saline. Patient had a normal neurological exam, did have a systolic murmur, clear lungs, no other pertinent findings. Vital signs show temperature 96.9, heart rate 107, respiratory rate 18, blood pressure 191/87 which decreased to 161/72 and heart rate 102 on next reading, 93% oxygen saturation on room air. Labs showed WBC of 14.9 with left shift and no bands, PEEP significant for creatinine of 0.9, BUN of 31, CK of 873, urinalysis showing no evidence of infection but ketones and granular casts, evidence for dehydration. Lactic acid 2.1 with follow-up lactic acid 1.3. Troponin 0.06. EKG was done and showed a regular rate sinus tachycardia of 106, no ST or T-wave changes. QTC of 479. CT of the head showed focal swelling on the right occipital scalp with no acute intracranial hemorrhage. C-spine CT showed multilevel degenerative spondylosis of the cervical spine with no evidence of acute fracture. CT chest showed trace pleural effusions with associative compressive atelectasis and scattered mild cylindrical bronchiectasis bilaterally, hepatic steatosis, a large amount of stool in the colon, a 3 cm cyst in the adnexa. The patient has a well score 0. Problem list Recent falls Dehydration Leukocytosis with mild lactic acidosis: Patient is afebrile but with an elevated white blood cell count with granulocytosis. She does meet SIRS criteria as she has elevated white blood cell count and tachycardia. Of any source of infection we would assume it may be a lung secondary to potential aspiration pneumonia as the patient did vomit and her history is uncertain and may include recent vomiting. Tachycardia and hypertension Plan -Admit patient to telemetry for further evaluation and treatment -Fall precautions -Patient was given ceftriaxone and azithromycin in the ED. No need to continue today as wbc have fallen, patient afebrile. -D-dimer positive at 1999. CTA done was negative. -Echocardiogram pending -Cardiology has seen the patient and suggests nuclear stress test outpatient. They have suggested we starte metoprolol 25mg bid and ASA 81mg -US carotid doppler -Trend troponins and EKGs 3 were positive and increasing, peaked at .22, decreased to .20. -Blood cultures and urine cultures -Normal saline at a rate of 75 cc/h -Follow BEP/CBC and CK level decreased to 501 -HbA1c 5.5 -Vitamin D low, started supplementation and thyroid levels normal -Physical therapy evaluation -For adnexal mass, patient will be referred for follow up pelvic ultrasound -Case management -Bowel regimen Patient is DNI Regular diet DVT prophylaxis with Lovenox and Alps Problem List: 1. Lactic acidosis 2. Leukocytosis 3. Fall 4. Syncope Pain Ratin Pain Location: na Pain Goal: Remain pain free Pain Plan: na Tomorrow's Labs & Rationales: cbc bep AntonyAnabella peña 04/02/18 1242: Attending MD Review Statement Attending Statement Attending MD Statement: examined this patient, discuss w/resident/PA/RECHARGER, agreed w/resident/PA/RECHARGER, discussed with family, reviewed EMR data (avail), discussed with nursing, discussed with case mgmt, reviewed images, amended to note Attending Assessment/Plan: 87F with recurrent falls and possible syncope event with mild rhabdomyolysis elevated cpk. Patient limited historian. Asymptomatic at this time, no complaints, physical and neuro exam normal. Labs and imaging noted. CTA chest with no PE, pneumonia or aortic dissection. Continue telemetry, serial cardiac enzymes with mild elevation. Cardiology consulted. ECHO pending. Vitamin d defeciency: replace vit d. Continue home meds. PT eval. DVT PPx.
--- NOTE | 2018-04-02 10:44 | CT SCAN REPORT ---
EXAMINATION: CT ANGIOGRAM OF THE CHEST WITH AND WITHOUT CONTRAST (CT PULMONARY ANGIOGRAM FOR PE) CLINICAL INFORMATION: Reason for Study:
Presumptive Dx: PE
Signs Symptoms: ELEVATED D-DIMER
COMPARISON: [facility] scan of the left lower extremity on 03/03/2013. (Negative). TECHNIQUE: Prior to contrast administration, noncontrast localization images were obtained. Subsequently, multidetector volumetric imaging was performed from the thoracic inlet to below the diaphragms following the administration of 90 mL Optiray 320 intravenous contrast. No contrast reaction reported. Sagittal, coronal, and MIP oblique sagittal reformatted images were obtained on the CT workstation, uploaded to PACS, and reviewed. Total exam dose-length product 374 mGy-cm. FINDINGS: [facility] view shows cardiomegaly and streaky opacities in the lower lobes. There is dense calcification of the thoracic aorta. QUALITY OF STUDY/CONTRAST BOLUS: Satisfactory PULMONARY ARTERIES: No central or segmental pulmonary emboli. THORACIC AORTA: No aneurysm or dissection. Widespread calcific arteriosclerotic plaques. LUNG: There is dependent atelectasis of both lower lobes, greater on the right than left. PLEURA: There are trace bilateral pleural effusions. MEDIASTINUM: The heart is prominent in size. No pericardial effusion. No hilar or mediastinal lymphadenopathy. No evidence of septal bowing or right heart strain. Thyroid nodules are present. The patient has a small hiatal hernia. CHEST WALL/AXILLA: No axillary or internal mammary lymphadenopathy. OSSEOUS STRUCTURES: No acute or suspicious osseous abnormality. UPPER ABDOMEN: Unremarkable. No reflux of contrast into the hepatic veins to suggest elevated right heart pressures. A 4.3 cm cyst arises from the midportion of the left kidney. IMPRESSION: 1. No evidence of pulmonary embolism. 2. Dependent atelectasis of both lower lobes right greater than left. Trace pleural effusions. 3. Thyroid nodules. Hiatal hernia. VTE: negative
--- NOTE | 2018-04-02 11:46 | Cons- Cardiology ---
General Information and HPI Consulting Request Date of Consult: 04/02/18 Requested By: Anca Hernández MD Reason for Consult: syncope and tachycardia History of Present Illness: Patient brought to the hospital by her son after neighbors witness her collapse in the garden. She was conscious when her son arrived. Does not recall the events. Has been in relatively good health and independant until recently, when patient's son has noticed some mnesic difficulties. Since admission, HR has been midly elevated (100-110), although patient denies symptoms of palpitation, dizziness, shortness of breath, chest pains. Troponins were slightly increased (0.12 --> 0.22) in the absence of symptoms again. Head imaging does not reveal any acute process, and no infectious process has been identified from labs and imaging. Allergies/Medications Allergies: Coded Allergies: codeine (GI DISTRESS 04/01/18) nystatin (UNKNOWN 04/01/18) Current Medications: Current Medications Sig/Dada Start time Last Medication Dose Route Stop Time Status Admin Acetaminophen 650 MG Q6P PRN 04/01 1830 AC PO Aspirin 325 MG ONCE ONE 04/02 0545 DC 04/02 PO 04/02 0546 0548 Azithromycin 500 MG ONCE ONE 04/01 1600 DC 04/01 Sodium Chloride 250 ML IV 04/01 1659 1810 Ceftriaxone Sodium 0 .STK-MED ONE 04/01 1740 DC .ROUTE Ceftriaxone Sodium 1,000 MG ONCE ONE 04/01 1600 DC 05/ IV 05 1601 1810 Cholecalciferol 1,000 IU DAILY 04/02 0900 AC 04/02 PO 0831 Enoxaparin Sodium 40 MG DAILY 04/01 1846 AC 04/02 SC 0831 Ondansetron HCl 4 MG ONCE ONE 04/01 1500 DC 05/ IV 05 1501 1500 Ondansetron HCl 0 .STK-MED ONE 04/01 1500 DC .ROUTE Polyethylene Glycol 17 GM DAILY 04/01 1847 AC 04/02 PO 0831 Sodium Chloride 1,000 ML .Q20H 04/01 1830 DC 05/ IV 2154 Sodium Chloride 1,000 ML BOLUS ONE 04/01 1545 DC 05/ IV 05 1644 1545 Sodium Chloride 1,000 ML BOLUS ONE 04/01 1545 DC 05/ IV 04/01 1644 1644 Sodium Chloride 1,000 ML BOLUS ONE 04/01 1500 DC 05/01 IV 04/01 1559 1500 Review of Systems Review of Systems: See HPI Past History Medical History Cardiovascular: hyperlipidemia Surgical History Surgical History: non-contributory Psychosocial History Where Do You Live? Home Smoking Status: Unknown If Ever Smoked Functional Ability ADLs Independent: dressing, eating, toileting, bathing. Ambulation: cane Exam & Diagnostic Data Vital Signs and I&O Vital Signs Date Time Temp Pulse Resp B/P B/P Pulse O2 O2 Flow FiO2 Mean Ox Delivery Rate 04/02 0927 96 Nasal 2.0L Cannula 04/02 0638 98.0 92 18 136/66 95 Room Air 04/02 0018 97.8 98 18 126/62 93 Room Air 04/02 0000 Nasal Cannula 04/01 1852 98.3 102 18 130/66 94 Room Air 04/01 1810 97.6 102 18 161/72 98 Room Air 04/01 1800 97 Nasal 2.0L Cannula 04/01 1651 97.6 107 20 178/80 93 Room Air 04/01 1509 97 Nasal 2.0L Cannula 04/01 1420 96.9 107 18 191/87 97 Intake & Output 04/02 1600 04/02 0800 04/02 0000 04/01 1600 04/01 0800 04/01 0000 Intake Total 400 3600 Output Total 300 300 Balance 100 3300 Intake, IV 400 3500 Intake, Oral 100 Output, Urine 300 300 Patient 166 lb 145 lb Weight Weight Bed scale Reported by Patient Measurement Method Physical Exam General Appearance: well developed/nourished, no apparent distress, alert, awake Neck: supple, trachea mid line (no JVD) Respiratory: no respiratory distress, quiet respiration, lungs clear Cardiovascular: regular rate/rhythm, norml femoral pulses equa (3/6 systolic ejection murmur ) Gastrointestinal: normal bowel sounds, soft, non-tender, no organomegaly Extremities: normal capillary refill, no edema Labs/Ata Results: Laboratory Tests 04/02 04/02 04/01 0400 0400 2220 Chemistry Sodium (137 - 145 mmol/L) 144 Potassium (3.5 - 5.1 mmol/L) 3.5 Chloride (98 - 107 mmol/L) 111 H Carbon Dioxide (22 - 30 mmol/L) 24 Anion Gap (5 - 16) 9 BUN (7 - 17 mg/dL) 24 H Creatinine (0.5 - 1.0 mg/dL) 0.8 Estimated GFR (>60 ml/min) > 60 BUN/Creatinine Ratio (7 - 25 %) 30.0 H Hemoglobin A1c (4.2 - 5.8 %) 5.5 Creatine Kinase (30 - 135 U/L) 501 H Troponin I (< 0.11 ng/ml) 0.22 *H 0.12 *H Hematology CBC w Diff NO MAN DIFF REQ WBC (4.8 - 10.8 /CUMM) 10.8 RBC (4.20 - 5.40 /CUMM) 4.00 L Hgb (12.0 - 16.0 G/DL) 11.1 L Hct (37 - 47 %) 33.8 L MCV (81.0 - 99.0 FL) 84.5 MCH (27.0 - 31.0 PG) 27.7 MCHC (33.0 - 37.0 G/DL) 32.8 L RDW (11.5 - 14.5 %) 16.2 H Plt Count (130 - 400 /CUMM) 213 MPV (7.4 - 10.4 FL) 9.3 Gran % (42.2 - 75.2 %) 79.5 H Lymphocytes % (20.5 - 51.1 %) 12.1 L Monocytes % (1.7 - 9.3 %) 7.3 Eosinophils % (0 - 5 %) 0.9 Basophils % (0.0 - 2.0 %) 0.2 Absolute Granulocytes (1.4 - 6.5 /CUMM) 8.6 H Absolute Lymphocytes (1.2 - 3.4 /CUMM) 1.3 Absolute Monocytes (0.10 - 0.60 /CUMM) 0.8 H Absolute Eosinophils (0.0 - 0.7 /CUMM) 0.1 Absolute Basophils (0.0 - 0.2 /CUMM) 0 04/01 04/01 04/01 1935 1758 1510 Chemistry Lactic Acid (0.7 - 2.1 mmol/L) 1.3 Coagulation D-Dimer High Sensitivty (0 - 243 ng/ml) 2004 H Urines Urinalysis MOD H Urine Color (YEL,AMB,STR) YEL Urine Clarity (CLEAR) HAZY H Urine pH (5.0 - 8.0) 6.0 Ur Specific [place] (1.001 - 1.035) >= 1.030 Urine Protein (NEG,<30 MG/DL) 100 H Urine Ketones (NEG) 15 H Urine Nitrite (NEG) NEG Urine Bilirubin (NEG) NEG Urine Urobilinogen (0.1 - 1.0 EU/dl) 0.2 Ur Leukocyte Esterase (NEG) NEG Ur Microscopic SEDIMENT EXAMINED Urine RBC (0 - 5 /HPF) 1-3 Ur Epithelial Cells (NONE,FEW) RARE Hyaline Casts (0/LPF) 1-3 H Granular Casts (NONE /LPF) 5-10 H Urine Mucus (FEW,NONE) MANY H Urine Hemoglobin (NEG) MOD H Urine Glucose (N MG/DL) NEG 04/01 1500 Chemistry Sodium (137 - 145 mmol/L) 142 Potassium (3.5 - 5.1 mmol/L) 4.1 Chloride (98 - 107 mmol/L) 101 Carbon Dioxide (22 - 30 mmol/L) 26 Anion Gap (5 - 16) 15 BUN (7 - 17 mg/dL) 31 H Creatinine (0.5 - 1.0 mg/dL) 0.9 Estimated GFR (>60 ml/min) 60 BUN/Creatinine Ratio (7 - 25 %) 34.4 H Glucose (65 - 99 mg/dL) 173 H Serum Osmolality (285 - 295 MOSM/KG) 314 H Lactic Acid (0.7 - 2.1 mmol/L) 2.1 Calcium (8.4 - 10.2 mg/dL) 9.7 Phosphorus (2.5 - 4.5 mg/dL) 3.9 Magnesium (1.6 - 2.3 mg/dL) 2.2 Total Bilirubin (0.2 - 1.3 mg/dL) 0.9 AST (14 - 36 U/L) 54 H ALT (9 - 52 U/L) 44 Alkaline Phosphatase (<127 U/L) 99 Creatine Kinase (30 - 135 U/L) 873 H Troponin I (< 0.11 ng/ml) 0.06 Total Protein (6.3 - 8.2 g/dL) 8.0 Albumin (3.5 - 5.0 g/dL) 4.2 Globulin (1.9 - 4.2 gm/dL) 3.8 Albumin/Globulin Ratio (1.1 - 2.2 %) 1.1 25-OH Vitamin D Total (30 - 100 ng/ml) 17.0 L TSH (0.270 - 4.200 uIU/mL) 0.395 Hematology CBC w Diff NO MAN DIFF REQ WBC (4.8 - 10.8 /CUMM) 14.9 H RBC (4.20 - 5.40 /CUMM) 5.02 Hgb (12.0 - 16.0 G/DL) 14.2 Hct (37 - 47 %) 41.9 MCV (81.0 - 99.0 FL) 83.5 MCH (27.0 - 31.0 PG) 28.3 MCHC (33.0 - 37.0 G/DL) 33.9 RDW (11.5 - 14.5 %) 15.9 H Plt Count (130 - 400 /CUMM) 279 MPV (7.4 - 10.4 FL) 9.5 Gran % (42.2 - 75.2 %) 91.2 H Lymphocytes % (20.5 - 51.1 %) 3.3 L Monocytes % (1.7 - 9.3 %) 4.3 Eosinophils % (0 - 5 %) 0.1 Basophils % (0.0 - 2.0 %) 1.1 Absolute Granulocytes (1.4 - 6.5 /CUMM) 13.6 H Absolute Lymphocytes (1.2 - 3.4 /CUMM) 0.5 L Absolute Monocytes (0.10 - 0.60 /CUMM) 0.6 Absolute Eosinophils (0.0 - 0.7 /CUMM) 0 Absolute Basophils (0.0 - 0.2 /CUMM) 0.2 Assessment/Plan Assessment/Plan Fall +/- syncope in her garden with amnesia of the events. Mild troponin increase and aortic murmur noticed, compatible with mild aortic stenosis/ sclerosis. Recent mnesic difficulties. Sinus tachycardia without evidence of infectious process at the moment. No arrhtythmia uncovered. Plan: echocardiogram nuclear stress test as outpatient or as inpatient in 24-48hrs if patient is still hospitalized. waiting for 3rd troponin. Maintain telemetry while in hospital Metoprolol 25mg PO bid, ASA 81 mg PO daily. Consult Acknowledgment - Thank you for your consult request.
[2018-04-02 15:00] VITALS: BP 108/66; BP 120/60
[2018-04-02 22:30] VITALS: BP 154/92
[2018-04-03 06:53] VITALS: BP 136/62
--- NOTE | 2018-04-03 07:55 | PN- Housestaff ---
Suad MARROQUIN,Esther 04/03/18 0755: Subjective Follow-up For: Recent falls Dehydration Leukocytosis with mild lactic acidosis Tachycardia and hypertension Tele-Events Since Last Visit: 76-78 sinus rhythm, no events Subjective: Patient states that she feels good, has no complaints, when interviewed she is alert and oriented x1, only to person. She denies any pain. No shortness of breath but is being maintained on 2L with low 90's O2 sats. Review of Systems Constitutional: Reports: no symptoms. Cardiovascular: Reports: no symptoms. Respiratory: Reports: no symptoms. Gastrointestinal: Reports: no symptoms. Musculoskeletal: Reports: no symptoms. Skin: Reports: no symptoms. Neurological/Psychological: Reports: confusion. Objective Last 24 Hrs of Vital Signs/I&O Vital Signs Date Time Temp Pulse Resp B/P B/P Pulse O2 O2 Flow FiO2 Mean Ox Delivery Rate 04/03 0915 Room Air 2.0L 04/03 0838 80 136/62 04/03 0800 98 Room Air 04/03 0653 98.4 80 20 136/62 92 Nasal Cannula 04/02 2230 98.5 76 21 154/92 94 02 2123 83 140/70 04/02 1500 97.6 70 20 108/66 92 /02 1500 98.3 83 20 120/60 94 02 1450 120/60 Intake & Output 04/03 1600 04/03 0800 04/03 0000 Intake Total 110 200 Output Total Balance 110 200 Intake, IV 10 Intake, Oral 100 200 Patient 167 lb Weight Physical Exam General Appearance: Alert, Cooperative, No Acute Distress Skin: No Rashes, No Breakdown, No Significant Lesion Skin Temp/Moisture Exam: Warm/Dry Sepsis Skin Exam (color): Normal for Ethnicity HEENT: Atraumatic, EOMI, Mucous Membr. moist/pink Neck: Supple, No JVD Cardiovascular: Regular Rate, Normal S1, Normal S2, systolic 4/6 murmur llsb Lungs: Clear to Auscultation, Normal Air Movement Abdomen: Normal Bowel Sounds, Soft, No Tenderness Neurological: Normal Speech, see assessment for MOCA and MMSE Extremities: No Clubbing, No Cyanosis, No Edema, Normal Pulses Vascular: Normal Pulses, Pulses Symmetrical Current Medications: Current Medications Sig/Dada Start time Last Medication Dose Route Stop Time Status Admin Acetaminophen 650 MG Q6P PRN 04/01 1830 AC PO Cholecalciferol 1,000 IU DAILY 04/02 0900 AC 04/02 PO 0831 Enoxaparin Sodium 40 MG DAILY 04/01 1846 04/02 SC 0831 Metoprolol Tartrate 25 MG BID 04/02 1311 04/03 PO 0838 Patient Medication 1 ED ONE ONE 04/03 1200 [facility] ED 04/03 1201 Polyethylene Glycol 17 GM DAILY 04/01 1847 04/02 PO 0831 Last 24 Hrs of Lab/Ata Results Last 24 Hrs of Labs/Mics: Laboratory Tests 04/03/18 0700: Anion Gap 9, Estimated GFR 60, BUN/Creatinine Ratio 22.2, Total Bilirubin 0.5, Direct Bilirubin 0.3, AST 31, ALT 29, Alkaline Phosphatase 64, Total Protein 5.7 L, Albumin 2.8 L, Thyroxine (T4) 6.2, Free T3 2.2 L, CBC w Diff NO MAN DIFF REQ, RBC 3.71 L, MCV 84.3, MCH 27.8, MCHC 33.0, RDW 15.9 H, MPV 9.7, Gran % 73.3, Lymphocytes % 15.8 L, Monocytes % 6.5, Eosinophils % 3.8, Basophils % 0.6 , Absolute Granulocytes 3.7, Absolute Lymphocytes 0.8 L, Absolute Monocytes 0.3 , Absolute Eosinophils 0.2, Absolute Basophils 0 Assessment/Plan Assessment: This is an 87-year-old female with a past medical history significant only for hyperlipidemia that is brought to see us for recent history of falls and altered mental status. As per the patient's son she had been normal before this and had no complaints. He denies recent confusion. The patient lives alone and usually ambulates with a cane. The patient's son denies a recent history of falls, but the patient was seen here in 2013 for a fall. The patient denied any palpitations, recent illness, bleeds, cough, chest pain, shortness of breath. Patient was noted to be unkempt and dehydrated. CT of the head showed focal swelling on the right occipital scalp with no acute intracranial hemorrhage. C-spine CT showed multilevel degenerative spondylosis of the cervical spine with no evidence of acute fracture. CT chest showed trace pleural effusions with associative compressive atelectasis and scattered mild cylindrical bronchiectasis bilaterally, hepatic steatosis, a large amount of stool in the colon, a 3 cm cyst in the adnexa. The patient had a well score 0. Problem list -Recent falls -Dehydration -Leukocytosis RESOLVED with mild lactic acidosis: Patient has always been afebrile but with an elevated white blood cell count with granulocytosis. She did meet SIRS criteria as she had elevated white blood cell count and tachycardia. Of any source of infection we would have assumed it may be a lung infection secondary to potential aspiration pneumonia as the patient did vomit and her history is uncertain and may include recent vomiting. However, this has now resolved. -Tachycardia and hypertension RESOLVED -AMS: alert and oriented x1 Plan -Admit patient to telemetry for further evaluation and treatment -Fall precautions -Patient was given ceftriaxone and azithromycin in the ED. No need to continue as wbc have fallen, patient continues to be afebrile. -D-dimer positive at 1999. CTA done was negative for PE. -Echocardiogram pending. -Cardiology has seen the patient and suggests nuclear stress test outpatient. They have suggested we start metoprolol 25mg bid and ASA 81mg here. 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 This test additionally picked up thyroid nodules that she can follow up on outpatient. 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 These are suggestive of age related changes, potentially alzheimer 's disease. We have consulted with neurology. -Trend troponins and EKGs 3 were positive and increasing, peaked at .22, decreased to .20. -Blood cultures and urine cultures -Follow BEP/CBC and CK level decreased to 501 -HbA1c 5.5 -Vitamin D low, started supplementation and thyroid levels normal -Physical therapy evaluation suggested home PT or STR. Patient ambulated with supervision -For adnexal mass, patient will be referred for follow up pelvic ultrasound -Refer to geriatric Dr. Mackay on discharge. -Case management -Bowel regimen Patient is DNI Regular diet DVT prophylaxis with Lovenox and Alps Problem List: 1. Syncope 2. Altered mental status Pain Ratin Pain Location: na Pain Goal: Remain pain free Pain Plan: na Tomorrow's Labs & Rationales: cbc bep Anabella Hardy 04/03/18 1143: Attending MD Review Statement Attending Statement Attending MD Statement: examined this patient, discuss w/resident/PA/RESIDENTIAL BUILDER, agreed w/resident/PA/RESIDENTIAL BUILDER, discussed with family, reviewed EMR data (avail), discussed with nursing, discussed with case mgmt, reviewed images, amended to note Attending Assessment/Plan: Patient seen/examined bedside. Patient is aaox 2-3 oriented. Her initial w/u is negative for acute pathology. MRI brain obtain. Patient family bedside. Cardiology consulted, troponin elevated likely type [place], Obtain neurology consult, MMSE screening for dementia. Plan of care d/sat son/patient bedside.
[2018-04-03 08:06] LABS: ABSOLUTE BASOPHIL COUNT 0 /CUMM (0.0-0.2); ABSOLUTE EOSINOPHIL COUNT 0.2 /CUMM (0.0-0.7); ABSOLUTE LYMPH COUNT 0.8 /CUMM (1.2-3.4); ABSOLUTE MONOCYTE COUNT 0.3 /CUMM (0.10-0.60); HEMATOCRIT 31.3 % (37-47); PLATELET COUNT 189 /CUMM (130-400)
--- NOTE | 2018-04-03 08:19 | ULTRASOUND REPORT ---
EXAMINATION: US DUPLEX CAROTID AND VERTEBRAL CLINICAL INFORMATION: Syncope. COMPARISON: None available. TECHNIQUE: Real-time ultrasound and Doppler techniques (integrating B-mode 2D vascular images, Doppler spectral analysis and color flow Doppler imaging) were utilized to interrogate the extracranial carotid and vertebral arteries bilaterally. The degree of stenosis determined by criteria similar to NASCET. FINDINGS: Right common carotid artery peak systolic velocity is 72 cm/s with end-diastolic velocity of 12 cm/s. Right internal carotid artery peak systolic velocity is 129 cm/s with maximal end-diastolic velocity of 17 cm/s. There is antegrade flow within the right vertebral artery. Calcific atherosclerotic plaque at the right carotid bifurcation. ICA/CCA ratio is 2.1. Left common carotid artery peak systolic velocity is 108 cm/s with maximal end-diastolic velocity of 13 cm/s. Left internal carotid artery peak systolic velocity is 136 cm/s. There is antegrade flow within the left vertebral artery. There is calcific atherosclerotic plaque at the left carotid bifurcation. ICA/CCA ratio is 1.7. Incidental note is made of right thyroid nodules that can be diagnostically assessed with thyroid ultrasound. IMPRESSION: - Calcific atherosclerotic disease results in 50-69% stenoses involving the proximal right and left internal carotid arteries by sonographic criteria. - There is normal antegrade flow within the vertebral arteries bilaterally. - Incidental note is made of right thyroid nodules that can be diagnostically assessed with thyroid ultrasound.
[2018-04-03 08:38] LABS: ABSOLUTE GRANULOCYTE CT 3.7 /CUMM (1.4-6.5); BASOPHIL % 0.6 % (0.0-2.0); EOSINOPHIL % 3.8 % (0-5); GRANULOCYTE % 73.3 % (42.2-75.2); MEAN CORPUSCULAR HGB 27.8 PG (27.0-31.0); MEAN CORPUSCULAR VOLUME 84.3 FL (81.0-99.0); MEAN PLATELET VOLUME 9.7 FL (7.4-10.4); RBC DISTRIBUTION WIDTH 15.9 % (11.5-14.5); RED BLOOD CELL CT 3.71 /CUMM (4.20-5.40)
--- NOTE | 2018-04-03 11:37 | MRI REPORT ---
MR BRAIN WITHOUT IV CONTRAST CLINICAL INFORMATION: Altered mental status for 2 days. COMPARISON: Head CT 04/01/2018. TECHNIQUE: MRI of the brain without contrast was obtained using routine sequences. FINDINGS: Motion degraded examination. There is no hydrocephalus, extra-axial surface collection, or herniation. There are T2 signal changes throughout the supratentorial white matter and central chad, most suggestive of moderate to severe chronic microangiopathy. There is global cerebral volume loss with a temporal lobe and parasylvian predominance. Mineralization within the globus pallidus bilaterally. The major flow voids at the skull base are preserved. There is no acute infarct on diffusion-weighted imaging. There is no intracranial hemorrhage on the gradient recalled echo acquisition. The midline structures are normal. The cerebellar tonsils are normally positioned. The craniocervical junction is normal. Osseous marrow signal intensity is homogenous. The visualized soft tissues are unremarkable. IMPRESSION: - Motion degraded study with no definite acute intracranial findings. 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 - There is global cerebral volume loss with a temporal lobe and parasylvian predominance.
[2018-04-03 14:30] VITALS: BP 152/66
--- NOTE | 2018-04-03 14:57 | Cons- Neurology ---
General Information and HPI Consulting Request Date of Consult: 04/03/18 Requested By: Anca Hernández MD History of Present Illness: 87-year-old female presents with altered cognitive status Patient is unable to give a coherent history Per medical records she did have a recent fall but there was no evidence of head trauma This apparently was repetitive Recently she started to have significant cognitive loss according to son's history She lives alone and apparently has been able to maintain herself She does not know that she is in hospital She does not usually see her physician Patient was noted to be somewhat unkempt at presentation to hospital She denies any alcohol abuse She states that she is driving but according to records son stated that she had stopped driving number of years ago She does not know if she is on any medications Allergies/Medications Allergies: Coded Allergies: codeine (GI DISTRESS 04/01/18) nystatin (UNKNOWN 04/01/18) Current Medications: Current Medications Sig/Dada Start time Last Medication Dose Route Stop Time Status Admin Acetaminophen 650 MG Q6P PRN 04/01 1830 AC PO Cholecalciferol 1,000 IU DAILY 04/02 0900 AC 04/02 PO 0831 Enoxaparin Sodium 40 MG DAILY 04/01 1846 AC 04/02 SC 0831 Metoprolol Tartrate 25 MG BID 04/02 1311 AC 04/03 PO 0838 Patient Medication 1 ED ONE ONE 04/03 1200 DC Teaching ED 04/03 1201 Polyethylene Glycol 17 GM DAILY 04/01 1847 AC 04/02 PO 0831 Review of Systems Review of Systems: Denies headache, diplopia, vertigo, trouble swallowing, chest pain, breathing difficulty, abdominal pain, incontinence, falls, swelling, fever However systems review are likely unreliable Past History Medical History Cardiovascular: hyperlipidemia Surgical History Surgical History: non-contributory Psychosocial History Where Do You Live? Home Smoking Status: Unknown If Ever Smoked Functional Ability ADLs Independent: dressing, eating, toileting, bathing. Ambulation: cane Exam & Diagnostic Data Vital Signs and I&O Vital Signs Date Time Temp Pulse Resp B/P B/P Pulse O2 O2 Flow FiO2 Mean Ox Delivery Rate 04/03 1430 98.4 87 20 152/66 93 05/ 0915 Room Air 2.0L 04/03 0838 80 136/62 04/03 0800 98 Room Air 04/03 0653 98.4 80 20 136/62 92 Nasal Cannula 05/02 2230 98.5 76 21 154/92 94 04/02 2123 83 140/70 04/02 1500 97.6 70 20 108/66 92 04/02 1500 98.3 83 20 120/60 94 Intake & Output 04/03 1600 04/03 0800 04/03 0000 Intake Total 370 110 200 Output Total 300 Balance 70 110 200 Intake, IV 20 10 Intake, Oral 350 100 200 Output, Urine 300 Patient 167 lb Weight Alert Not oriented to time or place Fund of knowledge extremely poor Very poor recall No dysarthria Comfortable Heart sounds normal, no carotid bruits, distal pulses intact Extraocular movements full, pupils equal reactive, fundi benign, visual dowell intact No facial weakness or facial sensory loss. Palate tongue and shoulders intact, hearing impaired on right Tone and strength upper and lower extremities No sensory loss to light touch or position Deep tendon reflexes 1+ bilateral Coordinative functions upper extremities intact Attempted gait not made due to history of recurrent falls Last 48 Hours of Lab Results: Laboratory Tests 04/03 04/02 04/02 0700 1150 0400 Chemistry Sodium (137 - 145 mmol/L) 143 Potassium (3.5 - 5.1 mmol/L) 3.6 Chloride (98 - 107 mmol/L) 110 H Carbon Dioxide (22 - 30 mmol/L) 24 Anion Gap (5 - 16) 9 BUN (7 - 17 mg/dL) 20 H Creatinine (0.5 - 1.0 mg/dL) 0.9 Estimated GFR (>60 ml/min) 60 BUN/Creatinine Ratio (7 - 25 %) 22.2 Total Bilirubin (0.2 - 1.3 mg/dL) 0.5 Direct Bilirubin (< 0.4 mg/dL) 0.3 AST (14 - 36 U/L) 31 ALT (9 - 52 U/L) 29 Alkaline Phosphatase (<127 U/L) 64 Troponin I (< 0.11 ng/ml) 0.20 *H 0.22 *H Total Protein (6.3 - 8.2 g/dL) 5.7 L Albumin (3.5 - 5.0 g/dL) 2.8 L Thyroxine (T4) (4.5 - 10.9 ug/dL) 6.2 Free T3 (2.34 - 5.61 pg/mL) 2.2 L Hematology CBC w Diff NO MAN DIFF REQ WBC (4.8 - 10.8 /CUMM) 5.0 RBC (4.20 - 5.40 /CUMM) 3.71 L Hgb (12.0 - 16.0 G/DL) 10.3 L Hct (37 - 47 %) 31.3 L MCV (81.0 - 99.0 FL) 84.3 MCH (27.0 - 31.0 PG) 27.8 MCHC (33.0 - 37.0 G/DL) 33.0 RDW (11.5 - 14.5 %) 15.9 H Plt Count (130 - 400 /CUMM) 189 MPV (7.4 - 10.4 FL) 9.7 Gran % (42.2 - 75.2 %) 73.3 Lymphocytes % (20.5 - 51.1 %) 15.8 L Monocytes % (1.7 - 9.3 %) 6.5 Eosinophils % (0 - 5 %) 3.8 Basophils % (0.0 - 2.0 %) 0.6 Absolute Granulocytes (1.4 - 6.5 /CUMM) 3.7 Absolute Lymphocytes (1.2 - 3.4 /CUMM) 0.8 L Absolute Monocytes (0.10 - 0.60 /CUMM) 0.3 Absolute Eosinophils (0.0 - 0.7 /CUMM) 0.2 Absolute Basophils (0.0 - 0.2 /CUMM) 0 04/02 04/01 04/01 0400 2220 1935 Chemistry Sodium (137 - 145 mmol/L) 144 Potassium (3.5 - 5.1 mmol/L) 3.5 Chloride (98 - 107 mmol/L) 111 H Carbon Dioxide (22 - 30 mmol/L) 24 Anion Gap (5 - 16) 9 BUN (7 - 17 mg/dL) 24 H Creatinine (0.5 - 1.0 mg/dL) 0.8 Estimated GFR (>60 ml/min) > 60 BUN/Creatinine Ratio (7 - 25 %) 30.0 H Hemoglobin A1c (4.2 - 5.8 %) 5.5 Creatine Kinase (30 - 135 U/L) 501 H Troponin I (< 0.11 ng/ml) 0.12 *H Coagulation D-Dimer High Sensitivty (0 - 243 ng/ml) 2004 H Hematology CBC w Diff MAN DIFF ORDERED WBC (4.8 - 10.8 /CUMM) 10.8 RBC (4.20 - 5.40 /CUMM) 4.00 L Hgb (12.0 - 16.0 G/DL) 11.1 L Hct (37 - 47 %) 33.8 L MCV (81.0 - 99.0 FL) 84.5 MCH (27.0 - 31.0 PG) 27.7 MCHC (33.0 - 37.0 G/DL) 32.8 L RDW (11.5 - 14.5 %) 16.2 H Plt Count (130 - 400 /CUMM) 213 MPV (7.4 - 10.4 FL) 9.3 Gran % (42.2 - 75.2 %) 79.5 H Lymphocytes % (20.5 - 51.1 %) 12.1 L Monocytes % (1.7 - 9.3 %) 7.3 Eosinophils % (0 - 5 %) 0.9 Basophils % (0.0 - 2.0 %) 0.2 Absolute Granulocytes (1.4 - 6.5 /CUMM) 8.6 H Segmented Neutrophils (42.2 - 75.2 %) 73 Band Neutrophils (0.0 - 5.0 %) 2 Absolute Lymphocytes (1.2 - 3.4 /CUMM) 1.3 Lymphocytes (20.5 - 51.1 %) 17 L Monocytes (1.7 - 9.3 %) 7 Absolute Monocytes (0.10 - 0.60 /CUMM) 0.8 H Eosinophils (0 - 5.0 %) 1 Absolute Eosinophils (0.0 - 0.7 /CUMM) 0.1 Absolute Basophils (0.0 - 0.2 /CUMM) 0 Platelet Estimate (ADEQUATE) ADEQUATE Normocytic RBCs VERIFIED Normochromic RBCs VERIFIED Other Body Source Fld Total RBCs Counted (%) 100 04/01 04/01 1758 1510 Chemistry Lactic Acid (0.7 - 2.1 mmol/L) 1.3 Urines Urinalysis MOD H Urine Color (YEL,AMB,STR) YEL Urine Clarity (CLEAR) HAZY H Urine pH (5.0 - 8.0) 6.0 Ur Specific [place] (1.001 - 1.035) >= 1.030 Urine Protein (NEG,<30 MG/DL) 100 H Urine Ketones (NEG) 15 H Urine Nitrite (NEG) NEG Urine Bilirubin (NEG) NEG Urine Urobilinogen (0.1 - 1.0 EU/dl) 0.2 Ur Leukocyte Esterase (NEG) NEG Ur Microscopic SEDIMENT EXAMINED Urine RBC (0 - 5 /HPF) 1-3 Ur Epithelial Cells (NONE,FEW) RARE Hyaline Casts (0/LPF) 1-3 H Granular Casts (NONE /LPF) 5-10 H Urine Mucus (FEW,NONE) MANY H Urine Hemoglobin (NEG) MOD H Urine Glucose (N MG/DL) NEG 04/01 1500 Chemistry Sodium (137 - 145 mmol/L) 142 Potassium (3.5 - 5.1 mmol/L) 4.1 Chloride (98 - 107 mmol/L) 101 Carbon Dioxide (22 - 30 mmol/L) 26 Anion Gap (5 - 16) 15 BUN (7 - 17 mg/dL) 31 H Creatinine (0.5 - 1.0 mg/dL) 0.9 Estimated GFR (>60 ml/min) 60 BUN/Creatinine Ratio (7 - 25 %) 34.4 H Glucose (65 - 99 mg/dL) 173 H Serum Osmolality (285 - 295 MOSM/KG) 314 H Lactic Acid (0.7 - 2.1 mmol/L) 2.1 Calcium (8.4 - 10.2 mg/dL) 9.7 Phosphorus (2.5 - 4.5 mg/dL) 3.9 Magnesium (1.6 - 2.3 mg/dL) 2.2 Total Bilirubin (0.2 - 1.3 mg/dL) 0.9 AST (14 - 36 U/L) 54 H ALT (9 - 52 U/L) 44 Alkaline Phosphatase (<127 U/L) 99 Creatine Kinase (30 - 135 U/L) 873 H Troponin I (< 0.11 ng/ml) 0.06 Total Protein (6.3 - 8.2 g/dL) 8.0 Albumin (3.5 - 5.0 g/dL) 4.2 Globulin (1.9 - 4.2 gm/dL) 3.8 Albumin/Globulin Ratio (1.1 - 2.2 %) 1.1 25-OH Vitamin D Total (30 - 100 ng/ml) 17.0 L TSH (0.270 - 4.200 uIU/mL) 0.395 Hematology CBC w Diff NO MAN DIFF REQ WBC (4.8 - 10.8 /CUMM) 14.9 H RBC (4.20 - 5.40 /CUMM) 5.02 Hgb (12.0 - 16.0 G/DL) 14.2 Hct (37 - 47 %) 41.9 MCV (81.0 - 99.0 FL) 83.5 MCH (27.0 - 31.0 PG) 28.3 MCHC (33.0 - 37.0 G/DL) 33.9 RDW (11.5 - 14.5 %) 15.9 H Plt Count (130 - 400 /CUMM) 279 MPV (7.4 - 10.4 FL) 9.5 Gran % (42.2 - 75.2 %) 91.2 H Lymphocytes % (20.5 - 51.1 %) 3.3 L Monocytes % (1.7 - 9.3 %) 4.3 Eosinophils % (0 - 5 %) 0.1 Basophils % (0.0 - 2.0 %) 1.1 Absolute Granulocytes (1.4 - 6.5 /CUMM) 13.6 H Absolute Lymphocytes (1.2 - 3.4 /CUMM) 0.5 L Absolute Monocytes (0.10 - 0.60 /CUMM) 0.6 Absolute Eosinophils (0.0 - 0.7 /CUMM) 0 Absolute Basophils (0.0 - 0.2 /CUMM) 0.2 Imaging/Other Studies: MRI brain FINDINGS: Motion degraded examination. There is no hydrocephalus, extra-axial surface collection, or herniation. There are T2 signal changes throughout the supratentorial white matter and central chad, most suggestive of moderate to severe chronic microangiopathy. There is global cerebral volume loss with a temporal lobe and parasylvian predominance. Mineralization within the globus pallidus bilaterally. The major flow voids at the skull base are preserved. There is no acute infarct on diffusion-weighted imaging. There is no intracranial hemorrhage on the gradient recalled echo acquisition. The midline structures are normal. The cerebellar tonsils are normally positioned. The craniocervical junction is normal. Osseous marrow signal intensity is homogenous. The visualized soft tissues are unremarkable. IMPRESSION: - Motion degraded study with no definite acute intracranial findings. 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 - There is global cerebral volume loss with a temporal lobe and parasylvian predominance. Assessment/Plan Assessment: Cognitive loss, likely dementing process Most, would be Alzheimer disease History suggests that there has been significant recent deterioration in status Recommendations: Further testing looking for possible other etiologies to disease could include EEG B12 level NMDA receptor antibodies PET scan of brain may be available on a research basis Trial of Aricept 5 mg a day Discharge planning and geriatric consultation Important since patient likely not able to sustain herself and her present home situation Consult Acknowledgment - Thank you for your consult request.
--- NOTE | 2018-04-03 21:54 | ECHOCARDIOGRAM REPORT ---
ARABELLA LYLES Age: 87 : 1930 Gender: F Exam Date: 04/02/2018 18:36 Exam Location: [address] Ht (in): 65 Wt (lb): 145 BSA: 1.75 BP: 136 / 66 Ordering Physician: Nany Lakhani MD Referring Physician: Enrique Hurtado MD Technologist: Germania Larkin [facility] Room Number: [id number] Indications: PRESYNCOPE/SYNCOPE Rhythm: Sinus Technical Quality: good FINDINGS Left Ventricle Concentric LVH. No regional wall motion abnormality and LVEF estimated at 60%. Diastolic dysfunction with evidence of increased LAP. Right Ventricle Normal size and fucntion. Right Atrium grossly normal size and function. Left Atrium enlarged left atrium. Interatrial septum appears intact. Mitral Valve Mitral annulus calcification with trace central mitral regurgitation. Aortic Valve Severe calcification of aortic valve cusps and annulus. Severe stenosis of aortic valve with mean gradient 45 mmHg and calculated NOELLE 0.5cm2. Tricuspid Valve Trace TR. Pulmonic Valve Trace insufficiency. RVSP estimated at 30 mmHg. Pericardium No pericardial effusion. Great Vessels Aortic root and proximal ascending aorta normal in size. CONCLUSIONS Concentric LVH. No regional wall motion abnormality and LVEF estimated at 60%. Diastolic dysfunction with evidence of increased LAP. Enlarged left atrium. Interatrial septum appears intact. Mitral annulus calcification with trace central mitral regurgitation. Severe calcification of aortic valve cusps and annulus. Severe stenosis of aortic valve with mean gradient 45 mmHg and calculated NOELLE 0.5cm2. RVSP estimated at 30 mmHg. Aortic root and proximal ascending aorta normal in size. Enrique Hurtado M.D. (Electronically Signed) Final Date: 03 Apr 2018 21:54 MEASUREMENTS (Male / Female) Normal Values 2D ECHO LV Diastolic Diameter PLAX 3.1 cm 4.2 - 5.9 / 3.9 - 5.3 cm LV Systolic Diameter PLAX 2.0 cm 2.1 - 4.0 cm LV Fractional Shortening PLAX 35.5 % 25 - 46 % LV Ejection Fraction 2D Teich 66.4 % IVS Diastolic Thickness 1.5 cm LVPW Diastolic Thickness 1.5 cm LV Relative Wall Thickness 1.0 RV Internal Dim ED PLAX 2.4 cm 1.9 - 3.8 cm LVOT Diameter 1.7 cm Aortic Root Diameter 2.3 cm LA Systolic Diameter LX 3.5 cm 3.0 - 4.0 / 2.7 - 3.8 cm LA Volume 60.0 cm 18 - 58 / 22 - 52 cm Ascending Aorta Diameter 2.2 cm DOPPLER AV Peak Velocity 445.0 cm/s AV Peak Gradient 79.2 mmHg AV Mean Velocity 320.0 cm/s AV Mean Gradient 47.0 mmHg AV Velocity Time Integral 107.0 cm LVOT Peak Velocity 99.4 cm/s LVOT Peak Gradient 4.0 mmHg LVOT Mean Velocity 66.5 cm/s LVOT Mean Gradient 2.0 mmHg LVOT Velocity Time Integral 23.0 cm LVOT Stroke Volume 52.2 cm AV Area Cont Eq vti 0.5 cm AV Area Cont Eq pk 0.5 cm MV Peak Velocity 115.0 cm/s MV Peak Gradient 5.3 mmHg MV Mean Velocity 69.9 cm/s MV Mean Gradient 2.0 mmHg Mitral E Point Velocity 108.0 cm/s Mitral A Point Velocity 106.0 cm/s Mitral E to A Ratio 1.0 MV PHT Velocity 108.0 cm/s MV Deceleration Grainger 536.0 cm/s MV Pressure Half Time 60.4 ms MV Area PHT 3.6 cm MV Deceleration Time 209.0 ms TR Peak Velocity 264.0 cm/s TR Peak Gradient 27.9 mmHg Right Atrial Pressure 5.0 mmHg Pulmonary Artery Systolic Pressu 32.9 mmHg Right Ventricular Systolic Press 32.9 mmHg PV Peak Velocity 106.0 cm/s PV Peak Gradient 4.5 mmHg PV Mean Velocity 72.1 cm/s PV Mean Gradient 2.0 mmHg PV Velocity Time Integral 20.3 cm LV E' Lateral Velocity 10.0 cm/s Mitral E to LV E' Lateral Ratio 10.8 LV E' Septal Velocity 4.7 cm/s Mitral E to LV E' Septal Ratio 23.1
--- NOTE | 2018-04-03 22:45 | PN- Cardiology ---
Subjective Subjective: No acute events. Patient has no complaints. Objective Vital Signs and I&Os Vital Signs Date Time Temp Pulse Resp B/P B/P Pulse O2 O2 Flow FiO2 Mean Ox Delivery Rate 04/03 2025 152/72 04/03 1430 98.4 87 20 152/66 93 04/03 0915 Room Air 2.0L 04/03 0838 80 136/62 / 0800 98 Room Air 04/03 0653 98.4 80 20 136/62 92 Nasal Cannula Intake & Output 04/03 0804/03 0000 04/02 1600 04/02 0804/02 0000 Intake Total 370 110 200 637 996 5746 Output Total 300 250 300 300 Balance 70 110 200 021 296 0358 Intake, IV 20 10 846 005 6557 Intake, Oral 350 100 200 400 100 Output, Urine 300 250 300 300 Patient 167 lb 166 lb Weight Weight Bed scale Measurement Method Physical Exam: General Appearance: Alert, Cooperative, No Acute Distress HEENT: Atraumatic, EOMI, Mucous Membr. moist/pink Neck: Supple, No JVD Cardiovascular: Regular Rate, Normal S1, diminished S2 but still audible , systolic 4/6 murmur llsb, with gallavardin at apex. Lungs: Clear to Auscultation, Normal Air Movement Abdomen: Normal Bowel Sounds, Soft, No Tenderness Results Last 48 Hrs of Labs/Mics: Laboratory Tests 04/03/18 0700: Anion Gap 9, Estimated GFR 60, BUN/Creatinine Ratio 22.2, Total Bilirubin 0.5, Direct Bilirubin 0.3, AST 31, ALT 29, Alkaline Phosphatase 64, Total Protein 5.7 L, Albumin 2.8 L, Triglycerides 125, Cholesterol 232 H, LDL Cholesterol, Calc 175 H, HDL Cholesterol 32 L, Cholesterol/HDL Ratio 7 H, Thyroxine (T4) 6.2, Free T3 2.2 L, CBC w Diff NO MAN DIFF REQ, RBC 3.71 L, MCV 84.3, MCH 27.8, MCHC 33.0, RDW 15.9 H, MPV 9.7, Gran % 73.3, Lymphocytes % 15.8 L, Monocytes % 6.5, Eosinophils % 3.8, Basophils % 0.6, Absolute Granulocytes 3.7, Absolute Lymphocytes 0.8 L, Absolute Monocytes 0.3, Absolute Eosinophils 0.2, Absolute Basophils 0 04/02/18 1150: Troponin I 0.20 *H 04/02/18 0400: Troponin I 0.22 *H 04/02/18 0400: Anion Gap 9, Estimated GFR > 60, BUN/Creatinine Ratio 30.0 H, Hemoglobin A1c 5.5, Creatine Kinase 501 H, CBC w Diff MAN DIFF ORDERED, RBC 4.00 L, MCV 84.5, MCH 27.7, MCHC 32.8 L, RDW 16.2 H, MPV 9.3, Gran % 79.5 H, Lymphocytes % 12.1 L, Monocytes % 7.3, Eosinophils % 0.9, Basophils % 0.2, Absolute Granulocytes 8.6 H, Segmented Neutrophils 73, Band Neutrophils 2, Absolute Lymphocytes 1.3, Lymphocytes 17 L, Monocytes 7, Absolute Monocytes 0.8 H, Eosinophils 1, Absolute Eosinophils 0.1, Absolute Basophils 0, Platelet Estimate ADEQUATE, Normocytic RBCs VERIFIED, Normochromic RBCs VERIFIED, Fld Total RBCs Counted 100 Recent Imaging Studies: Echocardiogram: severe aortic stenosis. NOELLE 0.5cm2, mean gradient 45mmHg. Assessment/Plan Assessment/Plan Fall +/- syncope without trauma, in patient with recent onset cognitive issues. Severe aortic stenosis on echocardiogram could explain fall/syncope. Patient does not seem particularly incommodated in her daily life by this, and the aortic stenosis would not explain her overall cognitive status. However, if upon further discussion with patient and son, it becomes apparent that she is very short of breath/dizzy/lethargic and this interferes with her life and reduces her quality of life, TAVR may be considered (after evaluation to see if she is a candidate). Continue telemetry? Yes
[2018-04-03 22:49] VITALS: BP 120/78
[2018-04-04 06:05] VITALS: BP 150/80
--- NOTE | 2018-04-04 08:41 | PN- Housestaff ---
Saud MARROQUIN,Esther 04/04/18 0841: Subjective Follow-up For: Recent falls Dehydration Leukocytosis with mild lactic acidosis Tachycardia and hypertension Complaints: no complaints Tele-Events Since Last Visit: nsr 75-86 Subjective: patient has no complaints. pleasantly confused. denies chest pain, weakness, dizziness, shortness of breath. Review of Systems Constitutional: Reports: no symptoms. Cardiovascular: Reports: no symptoms. Respiratory: Reports: no symptoms. Gastrointestinal: Reports: no symptoms. Genitourinary: Reports: no symptoms. Musculoskeletal: Reports: no symptoms. Neurological/Psychological: Reports: confusion, dementia. Objective Last 24 Hrs of Vital Signs/I&O Vital Signs Date Time Temp Pulse Resp B/P B/P Pulse O2 O2 Flow FiO2 Mean Ox Delivery Rate 04/04 1038 98.9 75 20 126/60 04/04 1003 75 126/60 04/04 0605 98.9 85 20 150/80 93 Room Air 04/03 2249 99.8 84 23 120/78 94 04/03 2025 152/72 Intake & Output 04/04 1600 04/04 0800 04/04 0000 Intake Total 50 Output Total Balance 50 Intake, Oral 50 Patient 170 lb Weight Physical Exam General Appearance: Alert, Cooperative, No Acute Distress Skin: No Rashes, No Breakdown, No Significant Lesion Skin Temp/Moisture Exam: Warm/Dry HEENT: Atraumatic, EOMI, Mucous Membr. moist/pink Neck: Supple Cardiovascular: Regular Rate, Normal S1, Normal S2 Lungs: Clear to Auscultation, Normal Air Movement Abdomen: Normal Bowel Sounds, Soft, No Tenderness Neurological: Normal Speech Extremities: No Clubbing, No Cyanosis, No Edema, Normal Pulses, No Tenderness/ Swelling Vascular: Normal Pulses Current Medications: Current Medications Sig/Dada Start time Last Medication Dose Route Stop Time Status Admin Acetaminophen 650 MG Q6P PRN 04/01 1830 DCD PO Atorvastatin Calcium 40 MG 1700 04/03 1700 DCD 04/03 PO 1754 Cholecalciferol 1,000 IU DAILY 04/02 0900 DCD 04/04 PO 1001 Donepezil HCl 5 MG DAILY 04/03 1752 DCD 04/04 PO 1001 Enoxaparin Sodium 40 MG DAILY 04/01 1846 DCD 04/04 SC 1004 Metoprolol Tartrate 25 MG BID 04/02 1311 DCD 04/04 PO 1003 Polyethylene Glycol 17 GM DAILY 04/01 184 DCD 04/04 PO 1004 Assessment/Plan Assessment: This is an 87-year-old female with a past medical history significant only for hyperlipidemia that is brought to see us for recent history of falls and altered mental status. As per the patient's son she had been normal before this and had no complaints. He denies recent confusion. The patient lives alone and usually ambulates with a cane. The patient's son denies a recent history of falls, but the patient was seen here in 2012 for a fall. The patient denied any palpitations, recent illness, bleeds, cough, chest pain, shortness of breath. Patient was noted to be unkempt and dehydrated. CT of the head showed focal swelling on the right occipital scalp with no acute intracranial hemorrhage. C-spine CT showed multilevel degenerative spondylosis of the cervical spine with no evidence of acute fracture. CT chest showed trace pleural effusions with associative compressive atelectasis and scattered mild cylindrical bronchiectasis bilaterally, hepatic steatosis, a large amount of stool in the colon, a 3 cm cyst in the adnexa. The patient had a well score 0. Problem list -Recent falls -Dehydration -Leukocytosis RESOLVED with mild lactic acidosis: Patient has always been afebrile but with an elevated white blood cell count with granulocytosis. She did meet SIRS criteria as she had elevated white blood cell count and tachycardia. Of any source of infection we would have assumed it may be a lung infection secondary to potential aspiration pneumonia as the patient did vomit and her history is uncertain and may include recent vomiting. However, this has now resolved. -Tachycardia and hypertension RESOLVED -AMS: alert and oriented x1 Plan -Admit patient to telemetry for further evaluation and treatment -Fall precautions -Patient was given ceftriaxone and azithromycin in the ED. No need to continue as wbc have fallen, patient continues to be afebrile. -D-dimer positive at 2000. CTA done was negative for PE. -Echocardiogram showed severe . Cardiology has recommended further outpatient evaluation for possibility of TAVR. They have also suggested nuclear stress test outpatient. They have suggested we start metoprolol 25mg bid and ASA 81mg here. 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 This test additionally picked up thyroid nodules that she can follow up on outpatient. 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 These are suggestive of age related changes, potentially alzheimer 's disease. We have consulted with neurology. They have suggested starting Aricept which we did. They have also suggested an EEG and NMDA RECEPTOR Ab test , and possibly PET. We will refer patient for follow-up. -Trend troponins and EKGs 3 were positive and increasing, peaked at .22, decreased to .20. -Blood cultures and urine cultures -Follow BEP/CBC and CK level decreased to 501 -HbA1c 5.5 -Vitamin D low, started supplementation and thyroid levels normal -Physical therapy evaluation suggested home PT or STR. Patient ambulated with supervision -For adnexal mass, patient will be referred for follow up pelvic ultrasound -Refer to geriatric Dr. Mackay on discharge. -Case management - patient will go to [facility] -Bowel regimen Patient is DNI Regular diet DVT prophylaxis with Lovenox and Alps Problem List: 1. Altered mental status 2. Lactic acidosis 3. Fall 4. Syncope Pain Ratin Pain Location: na Pain Goal: Remain pain free Pain Plan: na Tomorrow's Labs & Rationales: cait HardyAnabella 04/04/18 1142: Attending MD Review Statement Attending Statement Attending MD Statement: examined this patient, discuss w/resident/PA/SURVIVAL EQUIPMENT REPAIRER, agreed w/resident/PA/SURVIVAL EQUIPMENT REPAIRER, discussed with family, reviewed EMR data (avail), discussed with nursing, discussed with case mgmt, reviewed images, amended to note Attending Assessment/Plan: Patient seen/examined bedside. Syncope event related to dehydration with elevated bun on admission and possible severe aortic stenosis. Patient is aaox 2 oriented. Her initial w/u is negative for acute pathology. MRI brain with age related volume loss. No chest pain. 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 Outpatient follow up with cardiology for TAVR. MMSE screening for dementia+. Neurology appreciated and cognitive decline. Plan of care d/sat son/patient bedside. vitamin d defeciency, repalce vitamin d po. geriatric referral as outpatient. PT recommends STR. Patient family bedside. gi/dvt prophyalxis dni.
[2018-04-04] MEDS ORDERED: VITAMIN D31000 UNI2 PO (09:13)
[2018-04-04] MEDS ORDERED: ARICEPT5 M1 PO (09:13)
[2018-04-04] MEDS ORDERED: ATORVASTATIN CA40 M1 PO (09:13)
[2018-04-04] MEDS ORDERED: METOPROLOL TART25 M1 PO (09:13)
--- NOTE | 2018-04-04 09:15 | Patient Discharge Instructions ---
Discharge Instructions General Discharge Information You were seen/treated for: 1. FALL 2. CONFUSION Watch for these problems: 1. Fall 2. fever 3. shortness of breath 4. ches pain Special Instructions: 1. Please follow up with president ceo & founder on discharge 2. please follow up with pcp on discharge 3. please take your medications as prescribed 4. follow up with cardilogist for eval of TAVR Diet Continue normal diet: Yes Activity Activity Self Limited: Yes Acute Coronary Syndrome Inclusion Criteria At DC or during hospital stay patient has or had the following: ACS DIAGNOSIS No Discharge Core Measures Meds if any: Prescribed or Continued at Discharge Meds if any: NOT Prescribed or Continued at Discharge Congestive Heart Failure Inclusion Criteria At DC or during hospital stay patient has or had the following: CHF DIAGNOSIS No Discharge Core Measures Meds if any: Prescribed or Continued at Discharge Meds if any: NOT Prescribed or Continued at Discharge Cerebrovascular accident Inclusion Criteria At DC or during hospital stay patient has or had the following: CVA/TIA Diagnosis No Discharge Core Measures Meds if any: Prescribed or Continued at Discharge Meds if any: NOT Prescribed or Continued at Discharge Venous thromboembolism Inclusion Criteria VTE Diagnosis No VTE Type NONE VTE Confirmed by (Test) NONE Discharge Core Measures - Per Current guidelines, there needs to be overlap - treatment for the first 5 days of Warfarin therapy. - If discharged on Warfarin prior to 5 days of - overlap therapy, the patient will need to be - assessed for post discharge needs including - *Post discharge parental anticoagulation - *Warfarin and/or parental anticoagulation education - *Follow up date to check INR post discharge At least 5 days overlap therapy as Inpatient No Meds if any: Prescribed or Continued at Discharge Note: Overlap Therapy is Warfarin and Anticoagulant Meds if any: NOT Prescribed or Continued at Discharge
--- NOTE | 2018-04-04 09:16 | Discharge Summary ---
Visit Information Visit Dates Admission Date: 04/01/18 Discharge Date: 04/04/2018 Hospital Course Course Attending Physician: Dr. Hardy Primary Care Physician: Maria Teresa Flannery MD,Feroz Weeks Consulting Request: Consulting Specialty: Cardiology Hospital Course: This is an 87-year-old female with a past medical history significant for hyperlipidemia that is brought for recent history of falls and altered mental status. Per son pt had been normal before this and had no complaints. The patient lives alone and usually ambulates with a cane. The patient's son denies a recent history of falls, but the patient was seen here in 2012 for a fall. The patient denied any palpitations, recent illness, bleeds, cough, chest pain, shortness of breath. Patient was noted to be unkempt and dehydrated. On admission patient had a normal neurological exam, did have a systolic murmur, clear lungs, no other pertinent findings. Vital signs on admission showed temperature 96.9, heart rate 107, respiratory rate 18, blood pressure 191/87 which decreased to 161/72 and heart rate 102 on next reading, 93% oxygen saturation on room air. Labs showed WBC of 14.9 with left shift and no bands, creatinine of 0.9, BUN of 31, CK of 873, urinalysis showing no evidence of infection but ketones and granular casts, evidence for dehydration. Lactic acid 2.1 with follow-up lactic acid 1.3. Troponin 0.06. EKG was done and showed a regular rate sinus tachycardia of 106, no ST or T-wave changes. QTC of 479. CT of the head showed focal swelling on the right occipital scalp with no acute intracranial hemorrhage. C-spine CT showed multilevel degenerative spondylosis of the cervical spine with no evidence of acute fracture. CT chest showed trace pleural effusions with associative compressive atelectasis and scattered mild cylindrical bronchiectasis bilaterally, hepatic steatosis, a large amount of stool in the colon, a 3 cm cyst in the adnexa. She was evaluated for the following problems: 1. Confusion and AMS: Thorough workup of CT, MRI, carotid US all engative. nml B12/ Folate. 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 Neuro has evaluated pt and thought this presentation was most likely consistent w/ dementia. Per neuro, further testing looking for possible other etiologies to disease could include EEG, NMDA receptor antibodies and PET scan of brain may be available on a research basis. * Refer to limnologist Dr. Mackay on discharge. * Follow up with neuro outpatient for further possible work up. Dr. Casarez saw pt in hospital. * Carotid doppler showed 50-69% stenoses involving the proximal right and left internal carotid arteries by sonographic criteria. This test additionally picked up thyroid nodules that she can follow up on outpatient. * MRI of the brain showed no definitive acute intracranial findings but moderate to severe microangiopathy and global cerebral volume loss, temporally predominate. These are suggestive of age related changes, potentially alzheimer 's disease. We have consulted with neurology. * Pt had MOCA which showed significant deficit. She scored 8/30. SHe refused to do MMSE. * Vitamin D low, started supplementation * thyroid levels normal 2. Fall: CT scan and MRI negative for mass/inarct/bleed. Echo did show severe which could lead to syncope. Cardiology was consulted and she was started on Metoprolol and CAD meds and plan was to follow up out patient to assess if patient was functional enough to be considered a candidate for TAVR. * Out pt cardiology f/up for TAVR * Con't cardio protective meds * Con't Metoprolol * Troponins and EKGs were initially positive and peaked at .22, decreased to .20. She never complained of chest pain * CK level trended down * HbA1c 5.5 * Physical therapy evaluation suggested home PT or STR. Patient ambulated with supervision 3. Elevated D-Dimer: she had dimer of 2003, but CTA negative. No evidence of PE. Unsure of etiology in this pt. 4. Incidental findings: Follow up outpt for further w/up. For adnexal mass, patient will be referred for follow up pelvic ultrasound. Additionally, there were thyroid nodules visualized on US so these must be followed out pt as well. DNI--PLEASE FOLLOW UP CODE STATUS OUT PT AND REITERATE WITH SON DIET TOLERATED Allergies: Coded Allergies: codeine (GI DISTRESS 04/01/18) nystatin (UNKNOWN 04/01/18) Significant Procedures: PATIENT: ARABELLA LYLES PRESENT AGE: 87 PATIENT ACCOUNT NO: [id number] : 32 LOCATION: [facility] ORDERING PHYSICIAN: Nany Lakhani MD SERVICE DATE: 04/01/18 EXAM TYPE: CARD - ECHOCARDIOGRAM ARABELLA LYLES Age: 87 : 1930 Gender: F Exam Date: 04/02/2018 18:36 Exam Location: [address] [place] [address] Ht (in): 65 Wt (lb): 145 BSA: 1.75 BP: 136 / 66 Ordering Physician: Nany Lakhani MD Referring Physician: Enrique Hurtado MD Technologist: Germania Larkin [facility] Room Number: [id number] Indications: PRESYNCOPE/SYNCOPE Rhythm: Sinus Technical Quality: good FINDINGS Left Ventricle Concentric LVH. No regional wall motion abnormality and LVEF estimated at 60%. Diastolic dysfunction with evidence of increased LAP. Right Ventricle Normal size and fucntion. Right Atrium grossly normal size and function. Left Atrium enlarged left atrium. Interatrial septum appears intact. Mitral Valve Mitral annulus calcification with trace central mitral regurgitation. Aortic Valve Severe calcification of aortic valve cusps and annulus. Severe stenosis of aortic valve with mean gradient 45 mmHg and calculated NOELLE 0.5cm2. Tricuspid Valve Trace TR. Pulmonic Valve Trace insufficiency. RVSP estimated at 30 mmHg. Pericardium No pericardial effusion. Great Vessels Aortic root and proximal ascending aorta normal in size. CONCLUSIONS Concentric LVH. No regional wall motion abnormality and LVEF estimated at 60%. Diastolic dysfunction with evidence of increased LAP. Enlarged left atrium. Interatrial septum appears intact. Mitral annulus calcification with trace central mitral regurgitation. Severe calcification of aortic valve cusps and annulus. Severe stenosis of aortic valve with mean gradient 45 mmHg and calculated NOELLE 0.5cm2. RVSP estimated at 30 mmHg. Aortic root and proximal ascending aorta normal in size. Enrique Hurtado M.D. (Electronically Signed) Final Date: 03 Apr 2018 21:54 MEASUREMENTS (Male / Female) Normal Values 2D ECHO LV Diastolic Diameter PLAX 3.1 cm 4.2 - 5.9 / 3.9 - 5.3 cm LV Systolic Diameter PLAX 2.0 cm 2.1 - 4.0 cm LV Fractional Shortening PLAX 35.5 % 25 - 46 % LV Ejection Fraction 2D Teich 66.4 % IVS Diastolic Thickness 1.5 cm LVPW Diastolic Thickness 1.5 cm LV Relative Wall Thickness 1.0 RV Internal Dim ED PLAX 2.4 cm 1.9 - 3.8 cm LVOT Diameter 1.7 cm Aortic Root Diameter 2.3 cm LA Systolic Diameter LX 3.5 cm 3.0 - 4.0 / 2.7 - 3.8 cm LA Volume 60.0 cm 18 - 58 / 22 - 52 cm Ascending Aorta Diameter 2.2 cm DOPPLER AV Peak Velocity 445.0 cm/s AV Peak Gradient 79.2 mmHg AV Mean Velocity 320.0 cm/s AV Mean Gradient 47.0 mmHg AV Velocity Time Integral 107.0 cm LVOT Peak Velocity 99.4 cm/s LVOT Peak Gradient 4.0 mmHg LVOT Mean Velocity 66.5 cm/s LVOT Mean Gradient 2.0 mmHg LVOT Velocity Time Integral 23.0 cm LVOT Stroke Volume 52.2 cm AV Area Cont Eq vti 0.5 cm AV Area Cont Eq pk 0.5 cm MV Peak Velocity 115.0 cm/s MV Peak Gradient 5.3 mmHg MV Mean Velocity 69.9 cm/s MV Mean Gradient 2.0 mmHg Mitral E Point Velocity 108.0 cm/s Mitral A Point Velocity 106.0 cm/s Mitral E to A Ratio 1.0 MV PHT Velocity 108.0 cm/s MV Deceleration [place] 536.0 cm/s MV Pressure Half Time 60.4 ms MV Area PHT 3.6 cm MV Deceleration Time 209.0 ms TR Peak Velocity 264.0 cm/s TR Peak Gradient 27.9 mmHg Right Atrial Pressure 5.0 mmHg Pulmonary Artery Systolic Pressu 32.9 mmHg Right Ventricular Systolic Press 32.9 mmHg PV Peak Velocity 106.0 cm/s PV Peak Gradient 4.5 mmHg PV Mean Velocity 72.1 cm/s PV Mean Gradient 2.0 mmHg PV Velocity Time Integral 20.3 cm LV E' Lateral Velocity 10.0 cm/s Mitral E to LV E' Lateral Ratio 10.8 LV E' Septal Velocity 4.7 cm/s Mitral E to LV E' Septal Ratio 23.1 DICTATED BY: Enrique Hurtado MD DATE/TIME DICTATED:04/03/182153 BUSINESS DEVELOPMENT PROFESSIONAL:FLASH DATE/TIME TRANSCRIBED:04/03/182153 CONFIDENTIAL, DO NOT COPY WITHOUT APPROPRIATE AUTHORIZATION. <Electronically signed in Other Vendor System> SIGNED BY: Enrique Hurtado MD 04/03/182153 PATIENT: ARABELLA LYLES PRESENT AGE: 87 PATIENT ACCOUNT NO: [id number] : 32 LOCATION: 1NO ORDERING PHYSICIAN: Amna Stauffer MD SERVICE DATE: 04/03/18- EXAM TYPE: MRI - MRI-HEAD W/O CK MR BRAIN WITHOUT IV CONTRAST CLINICAL INFORMATION: Altered mental status for 2 days. COMPARISON: Head CT 04/01/2018. TECHNIQUE: MRI of the brain without contrast was obtained using routine sequences. FINDINGS: Motion degraded examination. There is no hydrocephalus, extra-axial surface collection, or herniation. There are T2 signal changes throughout the supratentorial white matter and central chad, most suggestive of moderate to severe chronic microangiopathy. There is global cerebral volume loss with a temporal lobe and parasylvian predominance. Mineralization within the globus pallidus bilaterally. The major flow voids at the skull base are preserved. There is no acute infarct on diffusion-weighted imaging. There is no intracranial hemorrhage on the gradient recalled echo acquisition. The midline structures are normal. The cerebellar tonsils are normally positioned. The craniocervical junction is normal. Osseous marrow signal intensity is homogenous. The visualized soft tissues are unremarkable. IMPRESSION: - Motion degraded study with no definite acute intracranial findings. 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 - There is global cerebral volume loss with a temporal lobe and parasylvian predominance. DICTATED BY: José Luis Saenz MD DATE/TIME DICTATED:04/03/181123 BUSINESS DEVELOPMENT PROFESSIONAL:FLASH DATE/TIME TRANSCRIBED:04/03/181123 CONFIDENTIAL, DO NOT COPY WITHOUT APPROPRIATE AUTHORIZATION. <Electronically signed in Other Vendor System> SIGNED BY: José Luis Saenz MD 04/03/18 1137 PATIENT: ARABELLA LYLES PRESENT AGE: 87 PATIENT ACCOUNT NO: [id number] : 32 LOCATION: 1NO ORDERING PHYSICIAN: Esther Borjas MD SERVICE DATE: 04/02/18 EXAM TYPE: CAT - CTA CHEST-PULMONARY EMBOLISM EXAMINATION: CT ANGIOGRAM OF THE CHEST WITH AND WITHOUT CONTRAST (CT PULMONARY ANGIOGRAM FOR PE) CLINICAL INFORMATION: Reason for Study:
Presumptive Dx: PE
Signs Symptoms: ELEVATED D-DIMER
COMPARISON: Triplex scan of the left lower extremity on 03/03/2013. (Negative). TECHNIQUE: Prior to contrast administration, noncontrast localization images were obtained. Subsequently, multidetector volumetric imaging was performed from the thoracic inlet to below the diaphragms following the administration of 90 mL Optiray 320 intravenous contrast. No contrast reaction reported. Sagittal, coronal, and MIP oblique sagittal reformatted images were obtained on the CT workstation, uploaded to PACS, and reviewed. Total exam dose-length product 374 mGy-cm. FINDINGS: Professor Of Philosophy view shows cardiomegaly and streaky opacities in the lower lobes. There is dense calcification of the thoracic aorta. QUALITY OF STUDY/CONTRAST BOLUS: Satisfactory PULMONARY ARTERIES: No central or segmental pulmonary emboli. THORACIC AORTA: No aneurysm or dissection. Widespread calcific arteriosclerotic plaques. LUNG: There is dependent atelectasis of both lower lobes, greater on the right than left. PLEURA: There are trace bilateral pleural effusions. MEDIASTINUM: The heart is prominent in size. No pericardial effusion. No hilar or mediastinal lymphadenopathy. No evidence of septal bowing or right heart strain. Thyroid nodules are present. The patient has a small hiatal hernia. CHEST WALL/AXILLA: No axillary or internal mammary lymphadenopathy. OSSEOUS STRUCTURES: No acute or suspicious osseous abnormality. UPPER ABDOMEN: Unremarkable. No reflux of contrast into the hepatic veins to suggest elevated right heart pressures. A 4.3 cm cyst arises from the midportion of the left kidney. IMPRESSION: 1. No evidence of pulmonary embolism. 2. Dependent atelectasis of both lower lobes right greater than left. Trace pleural effusions. 3. Thyroid nodules. Hiatal hernia. VTE: negative DICTATED BY: Addy Martínez MD DATE/TIME DICTATED:04/02/181028 BUSINESS DEVELOPMENT PROFESSIONAL:FLASH DATE/TIME TRANSCRIBED:04/02/181028 CONFIDENTIAL, DO NOT COPY WITHOUT APPROPRIATE AUTHORIZATION. <Electronically signed in Other Vendor System> SIGNED BY: Addy Martínez MD [id number] Disposition Summary Disposition Principal Diagnosis: DEMENTIA Additional Diagnosis: Discharge Disposition: SNF Discharge Instructions General Discharge Information Code Status: Do Not Intubate Patient's Diet: TOLERATED Patient's Activity: TOLERATED Follow-Up Instructions/Appts: SEE ABOVE Medications at Discharge Discharge Medications: Start taking the following new medications: Donepezil HCl (Aricept) 5 MG TABLET 1 Tablet ORAL DAILY Qty = 30 No Refills Comments: Last Taken: 04/04/18 Time: 10:00 AM Atorvastatin Calcium (Atorvastatin Calcium) 40 MG TABLET 1 Tablet ORAL 5 PM Qty = 30 No Refills Comments: Last Taken: 04/03/18 Time: 6:00 PM Metoprolol Tartrate (Metoprolol Tartrate) 25 MG TABLET 1 Tablet ORAL TWICE DAILY Qty = 30 No Refills Comments: Last Taken: 04/04/18 Time: 10:00 AM Cholecalciferol (Vitamin D3) 1,000 UNIT TABLET 1 Tablet ORAL DAILY Qty = 30 No Refills Comments: Last Taken: 04/04/18 Time: 10:00 AM Copies To: Maria Teresa Flannery MD,Feroz Solano MD Review Statement Documenting Attending: Antony MARROQUIN,Anabella
[2018-04-04 10:38] VITALS: BP 126/60
--- NOTE | 2018-04-04 11:08 | PN- Cardiology ---
Subjective Subjective: Discussed echocardiogram results with resident. Patient and her son prefer to think about treatment options. No acute events and patient denies any dizziness or chest pains today. Objective Vital Signs and I&Os Vital Signs Date Time Temp Pulse Resp B/P B/P Pulse O2 O2 Flow FiO2 Mean Ox Delivery Rate 04/04 1038 98.9 75 20 126/60 04/04 1003 75 126/60 04/04 0605 98.9 85 20 150/80 93 Room Air 04/03 2249 99.8 84 23 120/78 94 04/03 2025 152/72 04/03 1430 98.4 87 20 152/66 93 Intake & Output 04/04 1600 04/04 0800 04/04 0000 04/03 1600 04/03 0800 04/03 0000 Intake Total 50 370 110 200 Output Total 300 Balance 50 70 110 200 Intake, IV 20 10 Intake, Oral 50 350 100 200 Output, Urine 300 Patient 170 lb 167 lb Weight Assessment/Plan Assessment/Plan Fall +/- syncope in patient with progressive cognitive impairment, and newly diagnosed severe aortic stenosis. Patient and her son prefer to think about treatment options in an outpatient setting. I will see her at the office and discuss options, including TAVR. Continue telemetry? Yes
== END 2018-04-04 11:00 | DRG 57 ==
LOC: ERH 14:11 → ERHI 15:52 → 1NO 15:52 → ENRESERV 17:15 → ENTRNSPT 18:12 → EDTRNSPTSTS 18:23 → EDTRNSPT 18:23 → 1NO 18:33 → CMPTRNSPT 18:52 → 1NO 04-02 23:03 → ENTRNSPT 04-04 10:58 → EDTRNSPTSTS 04-04 10:59 → EDTRNSPT 04-04 10:59 → 1NO 04-04 11:00 → ENPENDDIS 04-04 11:00 → CMPTRNSPT 04-04 11:16
PROVIDERS: Physician Assistant Medical; Student in an Organized Health Care Education/Training Program
DX: G30.9 Alzheimer's disease, unspecified (principal); E87.2 Acidosis; F02.80 Dementia in other diseases classified elsewhere, unspecified severity, without behavioral disturbance, psychotic disturbance, mood disturbance, and anxiety; E86.0 Dehydration; I35.0 Nonrheumatic aortic (valve) stenosis; E78.5 Hyperlipidemia, unspecified; I10 Essential (primary) hypertension; R00.0 Tachycardia, unspecified; R41.82 Altered mental status, unspecified; R41.3 Other amnesia; R55 Syncope and collapse; W01.0XXA Fall on same level from slipping, tripping and stumbling without subsequent striking against object, initial encounter; Y92.017 Garden or yard in single-family (private) house as the place of occurrence of the external cause; Z88.5 Allergy status to narcotic agent; Z88.8 Allergy status to other drugs, medicaments and biological substances; Z66 Do not resuscitate; Z91.81 History of falling; E55.9 Vitamin D deficiency, unspecified
CPT/HCPCS: 1NSP; 70551; 36415; 36592; 74176; 81001; 82436; 84481; 87040; 87086; 93005; 93010; 93306; 96374; 97110-GO; 97116-GO; 97161-GP; 97530-GO; J0456; J0696; J1650; J2405; J7040

== ENCOUNTER 2018-06-17 15:17 | Inpatient (IN) | payer OTHER ==
[~2018-06-17] VITALS: Ht 154.9 cm; Wt 62.7 kg
[~2018-06-17 15:17] MED LIST: ARICEPT5 M1 PO; ATORVASTATIN CA40 M1 PO; METOPROLOL TART25 M1 PO; VITAMIN D31000 UNI2 PO
--- NOTE | 2018-06-17 16:59 | RADIOLOGY REPORT ---
EXAMINATION: XR PORTABLE CHEST CLINICAL INFORMATION: Confusion. Weakness. Cough. COMPARISON: CTA chest 04/02/2018 TECHNIQUE: Portable frontal view of the chest was obtained. 4:12 PM FINDINGS: Lungs are clear. No pulmonary vascular congestion. There is no pleural effusion. The heart size is normal. The cardiac and mediastinal contours are normal. There are calcifications of the thoracic aorta. There are multilevel degenerative changes of dorsal spine. There is degenerative spur of the inferior left humeral head at the glenohumeral joint. IMPRESSION: Unremarkable examination.
[2018-06-17 17:08] LABS: ABSOLUTE BASOPHIL COUNT 0 /CUMM (0.0-0.2); ABSOLUTE EOSINOPHIL COUNT 0.7 /CUMM (0.0-0.7); ABSOLUTE GRANULOCYTE CT 9.5 /CUMM (1.4-6.5); ABSOLUTE MONOCYTE COUNT 0.8 /CUMM (0.10-0.60); BASOPHIL % 0.3 % (0.0-2.0); EOSINOPHIL % 6.2 % (0-5); GRANULOCYTE % 78.3 % (42.2-75.2); HEMATOCRIT 33.7 % (37-47); MEAN CORPUSCULAR HGB 28.3 PG (27.0-31.0); MEAN CORPUSCULAR HGB CONC 33.3 G/DL (33.0-37.0); MEAN CORPUSCULAR VOLUME 84.9 FL (81.0-99.0); MEAN PLATELET VOLUME 9.4 FL (7.4-10.4); PLATELET COUNT 198 /CUMM (130-400); RBC DISTRIBUTION WIDTH 15.9 % (11.5-14.5); RED BLOOD CELL CT 3.97 /CUMM (4.20-5.40); WHITE BLOOD CELL COUNT 12.1 /CUMM (4.8-10.8)
--- NOTE | 2018-06-17 17:20 | ED GENERAL ADULT ---
See Addendum History of Present Illness General Chief Complaint: General Adult Stated Complaint: BIBA GENERAL WEAKNESS Source: EMS Exam Limitations: confusion Vital Signs & Intake/Output Vital Signs & Intake/Output Vital Signs Date Time Temp Pulse Resp B/P B/P Pulse O2 O2 Flow FiO2 Mean Ox Delivery Rate 06/17 2020 98.3 90 18 140/63 95 Room Air 06/17 1841 98.9 97 18 141/101 99 Room Air 06/17 1720 Room Air 06/17 1523 99.0 106 16 126/63 94 Room Air Allergies Coded Allergies: codeine (GI DISTRESS 04/01/18) nystatin (UNKNOWN 04/01/18) Reconcile Medications Atorvastatin Calcium 40 MG TABLET 1 TAB PO 1700 CHOLESTEROL Cholecalciferol (Vitamin D3) 1,000 UNIT TABLET 1 TAB PO DAILY VIT D DEFICIENCY Donepezil HCl (Aricept) 5 MG TABLET 1 TAB PO DAILY DEMENTIA Metoprolol Tartrate 25 MG TABLET 1 TAB PO BID HTN Nitrofurantoin Monohyd/M-Cryst (Macrobid 100 MG Capsule) 100 MG CAPSULE 1 CAP PO BID UTI with food Triage Note: PT ARRIVES VIA EMS FOR ?DIFFICULTY AMBULTATING PER EMS. FAMILY CALLED AMBULANCE FAMILY REPORTED PT WAS "WEAKER THAN NORMAL AND COMPLAINING OF BILATERAL LEG PAIN" PT ARRIVES AWAKE/ALERT WITH EASY WOB, DENIES LEG PAIN, DENIES PAIN OVERALL. VSS. AWAITING FAMILY ARRIVAL. PT DENIES USING ASSISTIVE DEVICE AT HOME TO AMBULATE. NO KNOWN INJURY. NO SWELLING/BRUISING NOTED TO LEGS. BILATERAL PEDAL PULSES WNL. Triage Nurses Notes Reviewed? yes HPI: Patient is an elderly female who is brought in today for confusion and weakness. She does not present with family, but EMS reports that her family states she is off of her baseline. She was reportedly unable to walk, and felt that her legs were "bombs." Upon my initial encounter the patient is hemodynamically stable, and pleasantly confused. She is not able to participate in details of her HPI or ROS, but currently has no acute symptoms or complaints. Past History Travel History Traveled to [place] past 21 day No Medical History Any Pertinent Medical History? see below for history Cardiovascular: hyperlipidemia History of MRSA: No History of VRE: No History of CDIFF: No Surgical History Surgical History: non-contributory Psychosocial History Who do you live with Son What is your primary language Occitan Family History Hx Contributory? Yes Review of Systems Review of Systems Constitutional: Reports: see HPI. Comments Other than the features mentioned in history of present illness above, a detailed review of systems was not possible secondary to the patient's confusion Physical Exam Physical Exam General Appearance: well developed/nourished, no apparent distress Comments: HEENT: Inspection of the head reveals a normocephalic cranium with no signs of trauma. Ophtho: Extraocular muscles are intact and pupils are equal and reactive to light bilaterally with no afferent pupillary defect. The sclera are noninjected , and there is no obvious discharge. Neck: The trachea is midline, there is no obvious asymmetry or mass over the thyroid, and there is no wincing on palpation of the midline cervical spine. Respiratory: The lungs are clear and equal to auscultation bilaterally without wheezes, rales, or rhonchi. The patient exhibits no signs of labored breathing. Cardiac: Regular rhythm and non-tachycardic without appreciable murmurs on auscultation. No obvious JVD. GI: Examination of the abdomen reveals no significant wincing on deep palpation. : Deferred Neuro: Focused neurologic examination was attempted, but secondary to the patient's confusion, it was extremely limited. Features that were obtainable included equal pupils and a lack of gross focal motor abnormality on patient's limited passive motion. Behavioral: Calm. Dermatologic: Dermatologic examination reveals no diffuse rashes or exanthems, no petechiae, no ecchymoses, and no other signs of erythema or infection. Core Measures ACS in differential dx? No CVA/TIA Diagnosis: Yes Sepsis Present: No Sepsis Focused Exam Completed? No Progress Differential Diagnoses I considered the following diagnoses in my evaluation of the patient: Sepsis, UTI, pneumonia, stroke, other metabolic abnormality, among multiple other possibilities. Plan of Care: Orders Procedure Date/time Status EKG 06/17 174 Active URINALYSIS 06/17 160 Complete COMPREHENSIVE METABOLIC PANEL 06/17 160 Complete CBC WITHOUT DIFFERENTIAL 06/17 1608 Complete Current Medications Sig/Dada Start time Last Medication Dose Stop Time Status Admin Nitrofurantoin 100 MG ONCE ONE 06/17 1945 CAN (Macrodantin 50MG 06/17 1946 Cap) Laboratory Tests 06/17/18 1725: Urine Color YEL, Urine Clarity HAZY H, Urine pH 6.0, Ur Specific [place] 1.010, Urine Protein NEG, Urine Ketones NEG, Urine Nitrite NEG, Urine Bilirubin NEG, Urine Urobilinogen 0.2, Ur Leukocyte Esterase MOD H, Ur Microscopic SEDIMENT EXAMINED, Urine WBC 25-50 H, Ur Epithelial Cells MOD H, Urine Bacteria MOD H, Hyaline Casts RARE H, Urine Hemoglobin NEG, Urine Glucose NEG 06/17/18 1634: Anion Gap 12, Estimated GFR 53 L, BUN/Creatinine Ratio 16.0, Glucose 106 H, Calcium 8.9, Total Bilirubin 0.9, AST 34, ALT 18, Alkaline Phosphatase 86, Total Protein 7.7, Albumin 3.9, Globulin 3.8, Albumin/Globulin Ratio 1.0 L, CBC w Diff NO MAN DIFF REQ, RBC 3.97 L, MCV 84.9, MCH 28.3, MCHC 33.3, RDW 15.9 H, MPV 9.4, Gran % 78.3 H, Lymphocytes % 8.5 L, Monocytes % 6.7, Eosinophils % 6.2 H, Basophils % 0.3, Absolute Granulocytes 9.5 H, Absolute Lymphocytes 1.0 L, Absolute Monocytes 0.8 H, Absolute Eosinophils 0.7, Absolute Basophils 0 Initial ED EKG: none Comments: Patient presents for confusion today. Laboratory studies were largely unremarkable except for a low GFR. Head CT was negative. Urinalysis however shows evidence of a urinary tract infection. The patient is off of her baseline , confused, and cannot remember using the bathroom 10 minutes prior to asking to use it again. I do not feel this represents a safe discharge as she lives alone , and her family is unable to stay with her tonight. Hospitalized for antibiotics and further treatment. Departure Departure Time of Disposition: 2027 Disposition: STILL A PATIENT Condition: Stable Clinical Impression Primary Impression: UTI (urinary tract infection) Qualifiers: Urinary tract infection type: acute cystitis Hematuria presence: without hematuria Qualified Code: N30.00 - Acute cystitis without hematuria Referrals: Maria Teresa Flannery MD,Feroz Weeks (PCP/Family) Additional Instructions: Your mother has a urinary tract infection which seems to be the reason for her confusion. We have prescribed an antibiotic called nitrofurantoin (Macrobid) to her pharmacy. Please have her take it until it is gone. Make an appointment with your primary physician to follow-up in the office for reassessment later this week. As always, return to the emergency department for any new or worsening symptoms. Departure Forms: Customer Survey General Discharge Information Prescriptions: Current Visit Scripts Nitrofurantoin Monohyd/M-Cryst (Macrobid 100 MG Capsule) 1 CAP PO BID #14 CAP with food Admission Note Spoke With: Lenora Cadet MD Documentation of Exam: Documentation of any treatments & extenuating circumstances including Concerns Regarding Discharge (functional status, medication knowledge or non-compliance, living conditions, etc.) that warrant an admission rather than observation: Patient requires hospitalization because she lives home alone with assistance and currently is confused secondary to her urinary tract infection. She has family members in the area, but they are unable to stay with her overnight and thus she would pose an unacceptably high fall risk. She has asked to use the bathroom several times, never remembering that she had just been 10 minutes before. I feel that this would cause her to fall at home and risk hip fracture or other more serious injury. She will also require possible IV antibiotics and consideration of physical therapy and placement. Critical Care Note Critical Care Note Critical Care Time: non-applicable
--- NOTE | 2018-06-17 19:05 | CT SCAN REPORT ---
EXAMINATION: CT HEAD WITHOUT CONTRAST CLINICAL INFORMATION: Acute mental status change. COMPARISON: CT head 04/01/2018. MR head 04/03/2018 TECHNIQUE: Contiguous axial imaging was performed from the skull base to vertex without intravenous administration of contrast. DLP: 620.49 mGy-cm FINDINGS: There is no evidence of acute intracranial hemorrhage or territorial infarction. No abnormal mass effect or midline shift is seen. Lo to white matter differentiation is well preserved. No extra-axial fluid collections are identified. There is atrophy with prominence of the ventricles and the sulci and hypodensity of the periventricular white matter due to chronic small vessel ischemic disease. There is vascular calcifications of the internal carotid arteries bilaterally. The osseous structures and soft tissues are normal. The mastoid air cells and visualized portions of the paranasal sinuses are well aerated. IMPRESSION: No acute intracranial pathology.
[2018-06-17] MEDS ORDERED: MACROBID 100 M100 MG PO (19:38)
--- NOTE | 2018-06-17 20:58 | History & Physical ---
Arely Flemingi 06/[birth year]/182056: General Information and HPI MD Statement: I have seen and personally examined ARABELLA LYLES and documented this H&P. The patient is a 87 year old F who presented with a patient stated chief complaint of []. Source of Information: patient (son), family Exam Limitations: unable to give history, not alert/orientated, confusion, dementia History of Present Illness: Patient is an 87 yo elderly female who was brought to the ER for confusion and weakness, when the family called the EMS to report the her curent symptoms were off her baseline. The son came visit her but had already gone by the time the history was taken. I called the son and left a voicemail. The patient herself is confused but coopertive, but is unable to provide a meaningful history. She has been calling the nurse to take her to the bathroom every few minutes not remembering not remember she just used it prior to asking to use it again. She is unable to provide any additional history. Allergies/Medications Allergies: Coded Allergies: codeine (GI DISTRESS 04/01/18) nystatin (UNKNOWN 04/01/18) Home Med list Atorvastatin Calcium 40 MG TABLET 1 TAB PO 1700 CHOLESTEROL Cholecalciferol (Vitamin D3) 1,000 UNIT TABLET 1 TAB PO DAILY VIT D DEFICIENCY Donepezil HCl (Aricept) 5 MG TABLET 1 TAB PO DAILY DEMENTIA Metoprolol Tartrate 25 MG TABLET 1 TAB PO BID HTN Nitrofurantoin Monohyd/M-Cryst (Macrobid 100 MG Capsule) 100 MG CAPSULE 1 CAP PO BID UTI with food Past History Travel History Traveled to [place] past 21 day No Medical History Neurological: dementia EENT: NONE Cardiovascular: aortic stenosis, hyperlipidemia Respiratory: NONE Gastrointestinal: NONE Hepatic: NONE Renal: NONE Musculoskeletal: NONE Psychiatric: NONE Endocrine: NONE History of MRSA: No History of VRE: No History of CDIFF: No Surgical History Surgical History: non-contributory Past Family/Social History Psychosocial History Where do you live? Home Who Do You Live With? self Services at Home: None Primary Language: Lithuanian Functional Ability ADLs Independent: dressing, eating, toileting, bathing. Ambulation: walker Review of Systems Review of Systems Constitutional: Reports: weakness. EENTM: Reports: no symptoms. Cardiovascular: Reports: no symptoms. Respiratory: Reports: no symptoms. GI: Reports: no symptoms. Genitourinary: Reports: no symptoms. Musculoskeletal: Reports: no symptoms. Skin: Reports: no symptoms. Neurological/Psychological: Reports: confusion, dementia, weakness. Hematologic/Endocrine: Reports: no symptoms. Immunologic/Allergic: Reports: no symptoms. Exam & Diagnostic Data Last 24 Hrs of Vital Signs/I&O Vital Signs Date Time Temp Pulse Resp B/P B/P Pulse O2 O2 Flow FiO2 Mean Ox Delivery Rate 06/17 2307 81 20 119/60 96 Room Air 06/17 2020 98.3 90 18 140/63 95 Room Air 06/17 1841 98.9 97 18 141/101 99 Room Air 06/17 1720 Room Air 06/17 1523 99.0 106 16 126/63 94 Room Air Intake & Output 06/18 0800 06/18 0000 06/17 1600 Intake Total Output Total Balance Patient 138 lb 160 lb Weight Weight Bed scale Estimated Measurement Method Physical Exam General Appearance Alert, Oriented X3 (oriented to place & person), Cooperative, No Acute Distress Skin No Rashes, No Significant Lesion HEENT Atraumatic, PERRLA, Mucous Membr. moist/pink Neck Supple Cardiovascular loud systolic li-systolic murmur Lungs Clear to Auscultation, Normal Air Movement Abdomen No Tenderness Neurological Strength at 5/5 X4 Ext, Normal Tone, Sensation Intact Extremities No Clubbing, No Cyanosis, No Edema, Normal Pulses Last 24 Hrs of Labs/Ata: Laboratory Tests 06/17/18 1725: Urine Color YEL, Urine Clarity HAZY H, Urine pH 6.0, Ur Specific [place] 1.010, Urine Protein NEG, Urine Ketones NEG, Urine Nitrite NEG, Urine Bilirubin NEG, Urine Urobilinogen 0.2, Ur Leukocyte Esterase MOD H, Ur Microscopic SEDIMENT EXAMINED, Urine WBC 25-50 H, Ur Epithelial Cells MOD H, Urine Bacteria MOD H, Hyaline Casts RARE H, Urine Hemoglobin NEG, Urine Glucose NEG 06/17/18 1634: Anion Gap 12, Estimated GFR 53 L, BUN/Creatinine Ratio 16.0, Glucose 106 H, Calcium 8.9, Total Bilirubin 0.9, AST 34, ALT 18, Alkaline Phosphatase 86, Total Protein 7.7, Albumin 3.9, Globulin 3.8, Albumin/Globulin Ratio 1.0 L, CBC w Diff NO MAN DIFF REQ, RBC 3.97 L, MCV 84.9, MCH 28.3, MCHC 33.3, RDW 15.9 H, MPV 9.4, Gran % 78.3 H, Lymphocytes % 8.5 L, Monocytes % 6.7, Eosinophils % 6.2 H, Basophils % 0.3, Absolute Granulocytes 9.5 H, Absolute Lymphocytes 1.0 L, Absolute Monocytes 0.8 H, Absolute Eosinophils 0.7, Absolute Basophils 0 Microbiology 06/17 1725 URINE ROUT: Urine Culture - RECD Assessment/Plan Assessment: Here is an 87 yo elderly Female, who was brought to the ED for consfusion and weakness. She uses a walker for assistance at home but per family, was off her baseline in her symptoms today. Her lab work suggested a urinary tract infection with moderately positive leukocyte esterase and positive urine for epithelial cells and bacteria. She warrants an admission at this time because the family have shown inability to stay with her for the night and with her confusion and weakness it would not be safe to discharge her. We would observe the patient to the floors due to the following reasons: 1. UTI -Lab reports suggest UTI with Leukocyte Esterase: Modertely positive, urine epithelial cells + urine bacteria + -She has been repeatedly using the bathroom per nurse, -The patient has an altered mental status; is oriented to place and person but not to time, unable to provide a meaningful history -Lekocytosis of 12.1 with predominantly Granulocytes (78.3%) possibly secondary to UTI -Couldn't reach the son to confirm her baseline mental status, left a voicemail, would call him back in the morning -Will start her on oral antibiotics (Bactrim) and reassess -will order urine culture/sensitivity -will repeat her CBC in the morning 2.Weakness -Pt usually uses walker to ambulate at home -per son she is off her baseline and not able to walk at this time -Family unable to stay with her at home, so will admit her as it is unsafe to discharge her for the risk of fall given her weakness and confusion - PT eval DVT prophylaxis The family of the patient could not be contacted to determine her code status. Keep her full code at this time. Call the family to confirm and update code status in the am tomorrow As Ranked By This Provider Problem List: 1. UTI (urinary tract infection) Qualifiers Urinary tract infection type: acute cystitis Hematuria presence: without hematuria Qualified Code: N30.00 - Acute cystitis without hematuria 2. Altered mental status 3. Weakness Core Measures/Misc (08/18) Acute Coronary Syndrome ACS Diagnosis: No Congestive Heart Failure Congestive Heart Failure Diagnosis No Cerebrovascular Accident CVA/TIA Diagnosis: Yes VTE (View Protocol) VTE Risk Factors Age>40 No Mechanical VTE Prophylaxis d/t N/A MechProphylax Ordered No VTE Pharm Prophylaxis d/t NA PharmProphylax ordered Sepsis (View protocol) Sepsis Present: No If YES complete Sepsis Event Note If YES complete Sepsis Event Note Gibran MARROQUINAfshan 06/17/18 2103: Core Measures/Misc (08/18) Sepsis (View protocol) If YES complete Sepsis Event Note If YES complete Sepsis Event Note Resident Review Statement Resident Statement: examined this patient, discussed with product managent intern, agreed with product managent intern, discussed with family, reviewed EMR data (avail), discussed with nursing , reviewed images Other Findings: This is an 88-year-old lady with past medical history significant for hyperlipidemia, hyperlipidemia and dementia was BIBA from home after she was found confused by the family. Patient was unable to provide any history given dementia. Per the EMS patient was sent in by the son because of confusion and weakness. Even though she is not able to provide any history she denies any pain or discomfort. In the ER, nurses reported the patient has been peeing every 10 minutes since her arrival, denies any blood in the urine. Patient was supposed to take being discharged from the ER on Macrobid, but had to be admitted because Could not take care of her at home. Vitals on admission were temperature 99.0, heart rate 106, respiratory rate 16, BP 126/63 and O2 sats 94% on room air. Physical exam patient is AxO 3 Labs were significant for WBC count of 12.1, H&H 11.2/33.7, platelet count 198, and blood glucose 106. UA showed 25-50 WBCs with positive LE but also Mod Epithelial cells. CXR and CT head negative for any acute pathology. Problem List; 1. Confusion likely 2/2 UTI 2. Hx of HTN, HLD and Dementia - Observe the patient on Gen Med floor for 24-48 hours. - Start the patient on IV Ceftriaxone - f/u urine Cx - PT evaluation - Social work consult - Confirmed CODE STATUS and resume medications once confirming medication list with the son. DVT Prophylaxis; ALPS and S/C Lovenox Patient is Chichi MARROQUIN,Júniorbinhjennifer 06/17/18 2200: Core Measures/Misc (08/18) Sepsis (View protocol) If YES complete Sepsis Event Note If YES complete Sepsis Event Note Attending MD Review Statement Attending Statement Attending MD Statement: examined this patient, discuss w/resident/PA/BILL DISTRIBUTOR, agreed w/resident/PA/BILL DISTRIBUTOR, reviewed EMR data (avail), discussed with nursing, amended to note Attending Assessment/Plan: Patient is an 87-year-old female with history of dyslipidemia. In April 2018 with complaints of altered mental status and falls. She was evaluated by the neurology service and found to have significant cognitive deficit. Impression by the neurology service at that time was that her cognitive loss was likely due to dementing process probably Alzheimer's. Outpatient follow-up was recommended. She was brought in by son today with complaints of altered mentation. According to the son patient was off her baseline. Son also reports that patient is unable to ambulate. In the emergency room patient was afebrile hemodynamically stable. She offers no complaints at all. No significant history can be obtained from the patient due to her dementia however she is very pleasant sounds in any acute distress and denied any symptoms. Workup revealed mildly elevated white cell count and abnormal UA. She was prescribed Bactrim by the ER service for presumed UTI with plans to discharge her home. Son however reported that he has some engagements to attend to and will not be home to take care of the patient. He states that she would be unsafe alone. There is no other family member who can be with the patient. On account of this patient was referred from the emergency room to the inpatient service for further management. On examination she is a very pleasant lady. She is not in any acute distress. She denies any symptoms. Denies dysuria or polyuria. Denies abdominal pain. Heart sounds are regular with a 3/6 systolic murmur. Lungs are clear bilaterally. Abdomen soft and nontender. She has no CVA tenderness. She has no peripheral edema. Problems: 1. Urinary tract infection 2. Dementia Plan: -Place on observation level of care. Anticipate discharge once son can safely take the patient home. -Continue antibiotic therapy with Bactrim. Follow-up urine culture results. Anticipate 3 days of antibiotic therapy. -Physical therapy evaluation to ensure that patient is safe to ambulate. -Social work consultation to ensure that patient has adequate care at home.
[2018-06-18 07:00] VITALS: BP 152/58
--- NOTE | 2018-06-18 07:05 | PN- Housestaff ---
Alphonso Alvarez 06/18/18 0705: Subjective Follow-up For: AMS, possible UTI Complaints: no complaints Subjective: She was seen and examined at the bedside. Patient was clearly confused, and unsure why she was at this location which she did not recognize as the hospital. Unsure how she came to be here. However, had no questions and voiced no complaints. Review of Systems Constitutional: Reports: no symptoms. Cardiovascular: Reports: no symptoms. Respiratory: Reports: no symptoms. Gastrointestinal: Reports: no symptoms. Musculoskeletal: Reports: no symptoms. Skin: Reports: no symptoms. Objective Last 24 Hrs of Vital Signs/I&O Vital Signs Date Time Temp Pulse Resp B/P B/P Pulse O2 O2 Flow FiO2 Mean Ox Delivery Rate 06/18 07 98.1 80 20 152/58 94 Room Air 06/17 2307 81 20 119/60 96 Room Air 06/17 2020 98.3 90 18 140/63 95 Room Air 06/17 1841 98.9 97 18 141/101 99 Room Air 06/17 1720 Room Air 06/17 1523 99.0 106 16 126/63 94 Room Air Intake & Output 06/18 1600 06/18 0800 06/18 0000 Intake Total 60 Output Total Balance 60 Intake, Oral 60 Patient 138 lb 138 lb Weight Weight Bed scale Measurement Method Physical Exam General Appearance: Alert, Cooperative, No Acute Distress, not oriented to person,place or time Skin: No Rashes, No Breakdown Skin Temp/Moisture Exam: Warm/Dry HEENT: Atraumatic, PERRLA, EOMI Neck: Supple, No JVD, No thryomegaly Cardiovascular: Regular Rate, Normal S1, Normal S2, possible systolic "whoosh" mitral regurg Lungs: Clear to Auscultation, Normal Air Movement Abdomen: Soft, No Tenderness, No Hepatospenomegaly Neurological: Normal Speech, Strength at 5/5 X4 Ext, Normal Tone, Sensation Intact Extremities: No Clubbing, No Cyanosis, No Edema Vascular: Normal Pulses, Pulses Symmetrical Current Medications: Current Medications Sig/Dada Start time Last Medication Dose Route Stop Time Status Admin Acetaminophen 650 MG Q6PRN PRN 06/18 0200 AC PO Enoxaparin Sodium 40 MG DAILY 06/18 0900 AC 06/18 SC 0840 Nitrofurantoin 100 MG ONCE ONE 06/17 1945 CAN PO 07/17 1946 Trimethoprim/ 1 TAB BID 06/18 0045 AC 06/18 Sulfamethoxazole PO 0840 Trimethoprim/ 0 .STK-MED ONE 06/17 2020 DC Sulfamethoxazole PO Trimethoprim/ 1 TAB ONCE ONE 06/17 2015 DC Sulfamethoxazole PO 06/17 2016 Last 24 Hrs of Lab/Ata Results Last 24 Hrs of Labs/Mics: Laboratory Tests 06/18/18 0652: CBC w Diff NO MAN DIFF REQ, RBC 3.82 L, MCV 85.2, MCH 28.5, MCHC 33.4, RDW 15.7 H, MPV 9.0, Gran % 68.8, Lymphocytes % 15.0 L, Monocytes % 6.8, Eosinophils % 9.2 H, Basophils % 0.2, Absolute Granulocytes 5.9, Absolute Lymphocytes 1.3, Absolute Monocytes 0.6, Absolute Eosinophils 0.8, Absolute Basophils 0 06/17/18 1725: Urine Color YEL, Urine Clarity HAZY H, Urine pH 6.0, Ur Specific [place] 1.010, Urine Protein NEG, Urine Ketones NEG, Urine Nitrite NEG, Urine Bilirubin NEG, Urine Urobilinogen 0.2, Ur Leukocyte Esterase MOD H, Ur Microscopic SEDIMENT EXAMINED, Urine WBC 25-50 H, Ur Epithelial Cells MOD H, Urine Bacteria MOD H, Hyaline Casts RARE H, Urine Hemoglobin NEG, Urine Glucose NEG 06/17/18 1634: Anion Gap 12, Estimated GFR 53 L, BUN/Creatinine Ratio 16.0, Glucose 106 H, Calcium 8.9, Total Bilirubin 0.9, AST 34, ALT 18, Alkaline Phosphatase 86, Total Protein 7.7, Albumin 3.9, Globulin 3.8, Albumin/Globulin Ratio 1.0 L, CBC w Diff NO MAN DIFF REQ, RBC 3.97 L, MCV 84.9, MCH 28.3, MCHC 33.3, RDW 15.9 H, MPV 9.4, Gran % 78.3 H, Lymphocytes % 8.5 L, Monocytes % 6.7, Eosinophils % 6.2 H, Basophils % 0.3, Absolute Granulocytes 9.5 H, Absolute Lymphocytes 1.0 L, Absolute Monocytes 0.8 H, Absolute Eosinophils 0.7, Absolute Basophils 0 Microbiology 06/17 1725 URINE ROUT: Urine Culture - RES Assessment/Plan Assessment: 87-year-old female brought into the ED for confusion and weakness. Uses a walker for assistance at home per family was offered baseline. Lab work suggest a urinary tract infection with moderate leukocyte esterase, but also positive for epithelial cells and bacteria. She warrants admission at this time because the family has shown inability to stay with her for the night and confusion makes her not safe to discharge. Problem list/plan: UTI leukocytosis to 8.6 Weakness Chronic conditions; DVT prophylaxis: Subcu heparin and ALPS Heart healthy diet Patient is full code per son Problem List: 1. Weakness 2. UTI (urinary tract infection) 3. Altered mental status Pain Ratin Pain Location: none Pain Goal: Remain pain free Pain Plan: none Tomorrow's Labs & Rationales: none planned at this time Anabella Hardy 06/18/18 1136: Attending MD Review Statement Attending Statement Attending MD Statement: examined this patient, discuss w/resident/PA/SALES REPRESENTATIVE JEWELRY, agreed w/resident/PA/SALES REPRESENTATIVE JEWELRY, discussed with family, reviewed EMR data (avail), discussed with nursing, discussed with case mgmt, reviewed images, amended to note Attending Assessment/Plan: Patient seen/examined bedside. Denies any new complaints today. Labs and imaging noted ASSESSMENT AND PLAN 1. Urinary tract infection 2. Dementia Plan: -Patient here with UTI on antibitoics. Follow culture. Titrate as per C/S. -Physical therapy evaluation to ensure that patient is safe to ambulate. -Case management if she can benefit from 24 hr care.
[2018-06-18 08:03] LABS: ABSOLUTE BASOPHIL COUNT 0 /CUMM (0.0-0.2); ABSOLUTE EOSINOPHIL COUNT 0.8 /CUMM (0.0-0.7); ABSOLUTE GRANULOCYTE CT 5.9 /CUMM (1.4-6.5); ABSOLUTE LYMPH COUNT 1.3 /CUMM (1.2-3.4); ABSOLUTE MONOCYTE COUNT 0.6 /CUMM (0.10-0.60); BASOPHIL % 0.2 % (0.0-2.0); EOSINOPHIL % 9.2 % (0-5); GRANULOCYTE % 68.8 % (42.2-75.2); HEMATOCRIT 32.5 % (37-47); MEAN CORPUSCULAR HGB 28.5 PG (27.0-31.0); MEAN CORPUSCULAR HGB CONC 33.4 G/DL (33.0-37.0); MEAN CORPUSCULAR VOLUME 85.2 FL (81.0-99.0); PLATELET COUNT 199 /CUMM (130-400); RBC DISTRIBUTION WIDTH 15.7 % (11.5-14.5); RED BLOOD CELL CT 3.82 /CUMM (4.20-5.40); WHITE BLOOD CELL COUNT 8.6 /CUMM (4.8-10.8)
--- NOTE | 2018-06-18 10:50 | PN- Student ---
Lilliam Franco 06/18/18 1041: Subjective Subjective: Patient was interviewed and examined at bed side. Patient was brought to ER by her son because of confusion out of normal variation. Patient was not oriented to Time, Person, Place and did not know the reason why she was at the hospital. Patient seemed sleepy during session, complained of lower abdominal pain, and stated that her left leg felt "funny". There was no bowel movement, no voiding since admission. Patient denied fever, chest pain, SOB, headache. Goal for today is follow up on her urine culture, and antibiotics for her UTI sxs. Objective Objective: Physical Exam: - Vital signs: T: 98F // P: 80 // RR: 20 // BP: 152/58 // SpO2: 94% room air. - Patient was oriented x0, confused, mild acute distress. - HEENT: PERRLA, EOMI. - Heart: grade 2 systolic murmur was heard on left sternal border 2nd ICS. - Lungs: CTA bilaterally. - Abdomen: normal bowel sound, tenderness in lower abdomen upon palpation. - Extremities: tingling, numbness on left leg. Labs: - Lab showed leukocytosis of 12.1, eosinophila of 9.2. - Urine culture came back positive LE, WBC, bacteria and also epithelial cells ( probably contaminated urine sample). Imaging: - CXR and head CT was unremarkable. Results Results: Laboratory Tests 06/18/18 0652: CBC w Diff NO MAN DIFF REQ, RBC 3.82 L, MCV 85.2, MCH 28.5, MCHC 33.4, RDW 15.7 H, MPV 9.0, Gran % 68.8, Lymphocytes % 15.0 L, Monocytes % 6.8, Eosinophils % 9.2 H, Basophils % 0.2, Absolute Granulocytes 5.9, Absolute Lymphocytes 1.3, Absolute Monocytes 0.6, Absolute Eosinophils 0.8, Absolute Basophils 0 06/17/18 1725: Urine Color YEL, Urine Clarity HAZY H, Urine pH 6.0, Ur Specific [place] 1.010, Urine Protein NEG, Urine Ketones NEG, Urine Nitrite NEG, Urine Bilirubin NEG, Urine Urobilinogen 0.2, Ur Leukocyte Esterase MOD H, Ur Microscopic SEDIMENT EXAMINED, Urine WBC 25-50 H, Ur Epithelial Cells MOD H, Urine Bacteria MOD H, Hyaline Casts RARE H, Urine Hemoglobin NEG, Urine Glucose NEG 06/17/18 1634: Anion Gap 12, Estimated GFR 53 L, BUN/Creatinine Ratio 16.0, Glucose 106 H, Calcium 8.9, Total Bilirubin 0.9, AST 34, ALT 18, Alkaline Phosphatase 86, Total Protein 7.7, Albumin 3.9, Globulin 3.8, Albumin/Globulin Ratio 1.0 L, CBC w Diff NO MAN DIFF REQ, RBC 3.97 L, MCV 84.9, MCH 28.3, MCHC 33.3, RDW 15.9 H, MPV 9.4, Gran % 78.3 H, Lymphocytes % 8.5 L, Monocytes % 6.7, Eosinophils % 6.2 H, Basophils % 0.3, Absolute Granulocytes 9.5 H, Absolute Lymphocytes 1.0 L, Absolute Monocytes 0.8 H, Absolute Eosinophils 0.7, Absolute Basophils 0 Microbiology 06/17 1725 URINE ROUT: Urine Culture - RES Assessment/Plan Assessment: Summary: 87-year-old female with PMH of hypercholesterolemia, presented with confusion, altered mental status. PE showed tenderness on lower abdomen, tingling numbness on left leg. Labs showed leukocytosis, eosinophilic. Urine culture showed positive LE, WBC and epithelial cells which was probably contaminated. Patient was treated with IV Bactrim and was responsed to it. Imaging was unremarkable. Problem list: - AMS secondary to UTI. - Hypercholesterolemia. Plan: - Follow up on urine culture. - Continue Bactrim, Metaprolol 25mg BID. - PO Tylenol prn. - PT and social worker masters consult to evaluation on her safety home care. - DVT prophylaxis with Heparin sodium. - Patient is full code. BernardcarolinaAlphonso 06/19/18 0857: Objective Results Results: Laboratory Tests 06/18/18 0652: CBC w Diff NO MAN DIFF REQ, RBC 3.82 L, MCV 85.2, MCH 28.5, MCHC 33.4, RDW 15.7 H, MPV 9.0, Gran % 68.8, Lymphocytes % 15.0 L, Monocytes % 6.8, Eosinophils % 9.2 H, Basophils % 0.2, Absolute Granulocytes 5.9, Absolute Lymphocytes 1.3, Absolute Monocytes 0.6, Absolute Eosinophils 0.8, Absolute Basophils 0 06/17/18 1725: Urine Color YEL, Urine Clarity HAZY H, Urine pH 6.0, Ur Specific [place] 1.010, Urine Protein NEG, Urine Ketones NEG, Urine Nitrite NEG, Urine Bilirubin NEG, Urine Urobilinogen 0.2, Ur Leukocyte Esterase MOD H, Ur Microscopic SEDIMENT EXAMINED, Urine WBC 25-50 H, Ur Epithelial Cells MOD H, Urine Bacteria MOD H, Hyaline Casts RARE H, Urine Hemoglobin NEG, Urine Glucose NEG 06/17/18 1634: Anion Gap 12, Estimated GFR 53 L, BUN/Creatinine Ratio 16.0, Glucose 106 H, Calcium 8.9, Total Bilirubin 0.9, AST 34, ALT 18, Alkaline Phosphatase 86, Total Protein 7.7, Albumin 3.9, Globulin 3.8, Albumin/Globulin Ratio 1.0 L, CBC w Diff NO MAN DIFF REQ, RBC 3.97 L, MCV 84.9, MCH 28.3, MCHC 33.3, RDW 15.9 H, MPV 9.4, Gran % 78.3 H, Lymphocytes % 8.5 L, Monocytes % 6.7, Eosinophils % 6.2 H, Basophils % 0.3, Absolute Granulocytes 9.5 H, Absolute Lymphocytes 1.0 L, Absolute Monocytes 0.8 H, Absolute Eosinophils 0.7, Absolute Basophils 0 Microbiology 06/17 1725 URINE ROUT: Urine Culture - RES Resident Review Statement Resident Statement: examined this patient, discussed with family, reviewed EMR data (avail), discussed with nursing, agree with medical student
[2018-06-18 14:42] VITALS: BP 84/69
[2018-06-18 14:49] VITALS: BP 100/60
[2018-06-18 22:33] VITALS: BP 142/74
--- NOTE | 2018-06-18 23:02 | Discharge Summary ---
Visit Information Visit Dates Admission Date: 06/17/18 Discharge Date: 06/19/18 Hospital Course Course Attending Physician: Anabella Hardy MD Primary Care Physician: Feroz Morel Jr., MD Hospital Course: 87 yo elderly female who was brought to the ER for confusion and weakness, when the family called the EMS to report the her curent symptoms were off her baseline. The patient was confused but coopertive, but unable to provide a meaningful history. On admission to general medicine floor, patient continues to remain confused and became less cooperative as the stay progress. Was found to have a UTI, which was treated with Bactrim. After discussions with the family patient was discharged to home with home care nurse orders placed. Admission Physical Exam was unremarkabl Admission Laboratory showed Urine leuk esterase, epithelial cells and moderate bacteria WBC was 12.1, mild leukocytosis Estimated GFR 53 Problem List 1. UTI -Lab reports suggest UTI with Leukocyte Esterase: Modertely positive, urine epithelial cells + urine bacteria + -She has been repeatedly using the bathroom per nurse, -The patient has an altered mental status; is oriented to place and person but not to time, unable to provide a meaningful history -Lekocytosis of 12.1 with predominantly Granulocytes (78.3%) possibly secondary to UTI onadmission -started her on oral antibiotics (Bactrim) and reassess 2.Weakness -Pt usually uses walker to ambulate at home -per son she is off her baseline and not able to walk at this time - PT eval suggested home with health services DVT prophylaxis Full code Allergies: Coded Allergies: codeine (GI DISTRESS 04/01/18) nystatin (UNKNOWN 04/01/18) Pertinent Lab Results: SERVICE DATE: 06/17/18 EXAM TYPE: RAD - XRY-PORTABLE CHEST XRAY IMPRESSION: Unremarkable examination. SERVICE DATE: 06/17/18-1747 EXAM TYPE: CAT - CT HEAD WO IV CONTRAST IMPRESSION: No acute intracranial pathology. Disposition Summary Disposition Principal Diagnosis: Altered mental status Additional Diagnosis: Urinary tract infection, weakness Discharge Disposition: home health services Discharge Instructions General Discharge Information Code Status: Full Code Patient's Diet: Regular as tolerated Patient's Activity: As tolerated and deemed safe by PT Follow-Up Instructions/Appts: - Please follow up with your primary care physician within 1-2 weeks of discharge. Inform your primary care physician of this admission to [facility]. - Continue your current medications per discharge instructions. - Please watch for these problems: Fever, Chills, Nausea, Vomiting, Shortness of Breath, Productive Cough, Chest Pain/Discomfort, Abdominal Pain, Active Bleeding or Bloody urine/stool. Medications at Discharge Discharge Medications: Stop taking the following medications: Nitrofurantoin Monohyd/M-Cryst (Macrobid 100 MG Capsule) 100 MG CAPSULE ORAL TWICE DAILY Qty = 14 Continue taking these medications: Donepezil HCl (Aricept) 5 MG TABLET 1 Tablet ORAL DAILY Qty = 30 Comments: Last Taken: 06/19/18 Time: 09:47 Atorvastatin Calcium (Atorvastatin Calcium) 40 MG TABLET 1 Tablet ORAL 5 PM Qty = 30 Comments: Last Taken: 06/18/18 Time: 17:04 Metoprolol Tartrate (Metoprolol Tartrate) 25 MG TABLET 1 Tablet ORAL TWICE DAILY Qty = 30 Comments: Last Taken: 06/19/18 Time: 09:47 Cholecalciferol (Vitamin D3) 1,000 UNIT TABLET 1 Tablet ORAL DAILY Qty = 30 Comments: Last Taken: 06/19/18 Time: 09:47 Start taking the following new medications: Sulfamethoxazole/Trimethoprim (Sulfamethoxazole-Tmp Ds Tablet) 800 MG-160 MG TABLET 1 Tablet ORAL TWICE DAILY Qty = 4 No Refills Comments: Last Taken: 06/19/18 Time: 09:47 Copies To: Maria Teresa Flannery MD,Feroz Weeks
--- NOTE | 2018-06-18 23:03 | Patient Discharge Instructions ---
Discharge Instructions General Discharge Information Special Instructions: - Please follow up with your primary care physician within 1-2 weeks of discharge. Inform your primary care physician of this admission to [facility]. - Continue your current medications per discharge instructions. - Please watch for these problems: Fever, Chills, Nausea, Vomiting, Shortness of Breath, Productive Cough, Chest Pain/Discomfort, Abdominal Pain, Active Bleeding or Bloody urine/stool. Diet Continue normal diet: Yes Activity Full Activity/No Limits: Yes Acute Coronary Syndrome Inclusion Criteria At DC or during hospital stay patient has or had the following: ACS DIAGNOSIS No Discharge Core Measures Meds if any: Prescribed or Continued at Discharge Meds if any: NOT Prescribed or Continued at Discharge Congestive Heart Failure Inclusion Criteria At DC or during hospital stay patient has or had the following: CHF DIAGNOSIS No Discharge Core Measures Meds if any: Prescribed or Continued at Discharge Meds if any: NOT Prescribed or Continued at Discharge Cerebrovascular accident Inclusion Criteria At DC or during hospital stay patient has or had the following: CVA/TIA Diagnosis No Discharge Core Measures Meds if any: Prescribed or Continued at Discharge Meds if any: NOT Prescribed or Continued at Discharge Venous thromboembolism Inclusion Criteria VTE Diagnosis No VTE Type NONE VTE Confirmed by (Test) NONE Discharge Core Measures - Per Current guidelines, there needs to be overlap - treatment for the first 5 days of Warfarin therapy. - If discharged on Warfarin prior to 5 days of - overlap therapy, the patient will need to be - assessed for post discharge needs including - *Post discharge parental anticoagulation - *Warfarin and/or parental anticoagulation education - *Follow up date to check INR post discharge At least 5 days overlap therapy as Inpatient No Meds if any: Prescribed or Continued at Discharge Note: Overlap Therapy is Warfarin and Anticoagulant Meds if any: NOT Prescribed or Continued at Discharge
[2018-06-19 02:00] VITALS: BP 150/80
[2018-06-19 06:24] VITALS: BP 114/68
--- NOTE | 2018-06-19 06:54 | PN- Housestaff ---
Subjective Follow-up For: AMS, possible UTI Complaints: no complaints Subjective: Patient was seen and examined at the bedside.Sitter was beside the patient. One episode of emesis overnight per nurse,but the patient stated she could not remember the event. Patient was clearly refused. Stated that she was very tired, and refused physical exam. Review of Systems Constitutional: Reports: see HPI. Objective Last 24 Hrs of Vital Signs/I&O Vital Signs Date Time Temp Pulse Resp B/P B/P Pulse O2 O2 Flow FiO2 Mean Ox Delivery Rate 06/19 0624 98.0 71 114/68 95 Room Air 06/19 0200 98.7 78 20 150/80 93 Room Air 06/18 2233 98.2 80 18 142/74 93 Room Air 06/18 2127 80 142/74 06/18 1449 100/60 06/18 1442 97.4 87 18 84/69 97 Room Air Intake & Output 06/19 1600 06/19 0800 06/19 0000 Intake Total 110 600 Output Total 500 575 Balance -390 25 Intake, IV 10 Intake, Oral 100 600 Number 1 1 Bowel Movements Output, 200 Emesis Output, Urine 300 575 Physical Exam General Appearance: No Acute Distress, not alert, states "unable to remember anything", and uncooperative with physical exam, see "subjective" regarding patient uncooperative with physical exam Current Medications: Current Medications Sig/Dada Start time Last Medication Dose Route Stop Time Status Admin Acetaminophen 650 MG Q6PRN PRN 06/18 0200 AC PO Atorvastatin Calcium 40 MG 1700 06/18 1700 AC 06/18 PO 1704 Cholecalciferol 1,000 IU DAILY 06/18 1440 AC 06/18 PO 1704 Donepezil HCl 5 MG DAILY 06/18 1440 AC 06/18 PO 1705 Enoxaparin Sodium 40 MG DAILY 06/18 0900 AC 06/18 SC 0840 Metoprolol Tartrate 25 MG BID 06/18 1440 AC 06/18 PO 2127 Trimethoprim/ 1 TAB BID 06/18 0045 AC 06/18 Sulfamethoxazole PO 2126 Assessment/Plan Assessment: 87-year-old female brought into the ED for confusion and weakness. Uses a walker for assistance at home per family was offered baseline. Lab work suggest a urinary tract infection with moderate leukocyte esterase, but also positive for epithelial cells and bacteria. She warrants admission at this time because the family has shown inability to stay with her for the night and confusion makes her not safe to discharge on admission. However, patient has no acute problems at this time, and plan is to discharge today to home with health care. Problem list/plan: UTI leukocytosis to 8.6 Weakness Chronic conditions; DVT prophylaxis: Subcu heparin and ALPS Heart healthy diet Patient is full code per son Problem List: 1. Weakness 2. UTI (urinary tract infection) 3. Altered mental status Pain Ratin Pain Location: none elicited Pain Goal: Remain pain free Pain Plan: none in place Tomorrow's Labs & Rationales: none; planned discharge today Discharge Plan Discharge Disposition: home with health services Stable for Discharge? Yes Anticipated Discharge (Day): today
[2018-06-19] MEDS ORDERED: SULFAMETHOXAZO1 EAC1 PO (07:53)
[2018-06-19 09:47] VITALS: BP 118/71
== END 2018-06-19 12:15 | disposition home health service (06) | DRG 690 ==
LOC: ERH 15:17 → 2NB 20:31 → ERHI 20:31 → ENRESERV 22:41 → 2NB 23:57 → ENPENDDIS 06-19 10:39 → ENTRNSPT 06-19 11:57 → EDTRNSPTSTS 06-19 12:10 → EDTRNSPT 06-19 12:10 → CMPTRNSPT 06-19 12:13 → 2NB 06-19 12:15
PROVIDERS: Internal Medicine; Student in an Organized Health Care Education/Training Program
DX: N39.0 Urinary tract infection, site not specified (principal); F03.90 Unspecified dementia, unspecified severity, without behavioral disturbance, psychotic disturbance, mood disturbance, and anxiety; I35.0 Nonrheumatic aortic (valve) stenosis; Z88.5 Allergy status to narcotic agent; Z88.8 Allergy status to other drugs, medicaments and biological substances; E78.5 Hyperlipidemia, unspecified; R53.1 Weakness; I10 Essential (primary) hypertension
CPT/HCPCS: 2NBSP; 36592; 71045; 81001; 87086; 93005; 93010; 97116-GO; 97161-GP; 97530-GO; J1650